=== PATIENT | female | born 1955 | race Caucasian/White ===

== ENCOUNTER → 2016-08-27 | Outpatient (CLI) | payer MEDICARE ==
--- NOTE | 2016-08-28 12:02 | MM ---
Reason for exam: screening (asymptomatic). Last mammogram was performed 1 year and 1 month ago. History: Patient is postmenopausal and has history of other cancer at age 57. Family history of breast cancer in paternal aunt. Benign cyst aspiration of the left breast, October 28, 2004. Benign ultrasound-guided core biopsy of the left breast, October 28, 2004. Took progesterone for 4 months beginning at age 50. Physical Findings: A clinical breast exam by your physician is recommended on an annual basis and results should be correlated with mammographic findings. MG 3D Screening Mammo W/Cad Bilateral CC and MLO view(s) were taken. Prior study comparison: July 20, 2015, bilateral MG screening mammo w CAD. December 30, 2013, bilateral MG diagnostic mammo w CAD FERNANDO. November 22, 2012, bilateral digital screening mammo w/CAD. There are scattered fibroglandular densities. Previous mammotome biopsy in the left breast. There is chronic nodularity in the left breast. ASSESSMENT: Benign, BI-RAD 2 RECOMMENDATION: Routine screening mammogram of both breasts in 1 year.
== END | disposition home or self-care (01) ==
LOC: RADMAMWWP 13:42
PROVIDERS: ATTEND Obstetrics & Gynecology
DX: Z12.31 Encounter for screening mammogram for malignant neoplasm of breast (principal)
CPT/HCPCS: 77063; G0202

== ENCOUNTER → 2017-01-07 | Outpatient (CLI) | payer MEDICARE ==
--- NOTE | 2017-01-07 15:55 | US ---
EXAMINATION TYPE: US thyroid st tissue head/neck DATE OF EXAM: 01/07/2017 COMPARISON: US . Thyroid biopsy dated 02/14/2013. CLINICAL HISTORY: E04.2 Nontoxic multinodular goiter. GLAND SIZE: Right Lobe: 3.1 x 2.0 x 1.7 cm Overall Parenchyma: heterogenous Left Lobe: 4.6 x 2.2 x 2.0 cm Overall Parenchyma: heterogeneous Isthmus Thickness: 0.4 cm NODULES RIGHT: # of nodules measured on right: 2 1. 1.0 X 0.8 x 0.9 cm hypoechoic cystic nodule at the upper pole with well-defined margins; . This nodule is wider than tall and shows no intranodular vascularity. Prior size: 0.6 x 0.4 x 0.5 cm 2. 0.9 X 0.5 x 0.7 cm hypoechoic cystic nodule at the mid pole with well-defined margins; interrupte d peripheral calcification. This nodule is wider than tall and shows no intranodular vascularity. Prior size: 0.6 x 0.4 x 0.4 cm LEFT: # of nodules measured on left: 1 1. 2.0 X 1.3 x 1.8 cm hypoechoic solid nodule at the lower pole with poorly defined margins; . Thi s nodule is wider than tall and shows intranodular vascularity. In comparison to the prior this appea rs to be previously biopsied. Prior size: 2.9 x 2.0 x 1.8 cm ISTHMUS: # of nodules measured in the isthmus: 0 Bilateral neck scanned, no evidence of lymphadenopathy. gland is diffusely heterogeneous and difficult to discern separate nodules, last exam in 2012 and gla nd looks different from prior. Patient had a biopsy a here and one done at [facility]. IMPRESSION: Multinodular thyroid goiter with minimal increase in size of cystic nodules on the right and stabilit y/decreased size of the solid nodule on the left with numerous subcentimeter nodules in a heterogenou s thyroid glandular echotexture.
== END | disposition home or self-care (01) ==
LOC: RADUSWWP 15:02
PROVIDERS: ATTEND Internal Medicine Endocrinology, Diabetes & Metabolism
DX: E04.2 Nontoxic multinodular goiter (principal)
CPT/HCPCS: 76536

== ENCOUNTER → 2017-11-30 | Outpatient (CLI) | payer MEDICARE ==
--- NOTE | 2017-12-02 10:54 | MM ---
Reason for exam: screening (asymptomatic). Last mammogram was performed 1 year and 3 months ago. History: Patient is postmenopausal and has history of other cancer at age 57. Family history of breast cancer in paternal aunt. Benign cyst aspiration of the left breast, October 28, 2004. Benign ultrasound-guided core biopsy of the left breast, October 28, 2004. Took progesterone for 4 months beginning at age 50. Physical Findings: A clinical breast exam by your physician is recommended on an annual basis and results should be correlated with mammographic findings. MG 3D Screening Mammo W/Cad Bilateral CC and MLO view(s) were taken. Prior study comparison: August 27, 2016, bilateral MG 3d screening mammo w/cad. July 20, 2015, bilateral MG screening mammo w CAD. There are scattered fibroglandular densities. No suspicious abnormality. Left biopsy marker noted. No significant changes when compared with prior studies. ASSESSMENT: Negative, BI-RAD 1 RECOMMENDATION: Routine screening mammogram of both breasts in 1 year.
== END | disposition home or self-care (01) ==
LOC: RADMAMWWP 11:06
PROVIDERS: ATTEND Internal Medicine
DX: Z12.31 Encounter for screening mammogram for malignant neoplasm of breast (principal)
CPT/HCPCS: 77063; 77067

== ENCOUNTER 2017-12-25 12:50 | Observation (INO) | payer MEDICARE ==
[2017-12-25] MEDS ORDERED: ASPIRIN 81 MG PO STA (13:17)
[2017-12-25] MEDS ORDERED: SODIUM CHLORIDE 0.9% 1,000 ML IV STA (13:17)
--- NOTE | 2017-12-25 13:19 | ED ---
General Adult HPI - General Chief complaint: Chest Pain Stated complaint: CHEST PAIN Time Seen by Provider: 12/25/17 13:12 Source: patient, RN notes reviewed Mode of arrival: wheelchair Limitations: no limitations - History of Present Illness Initial comments: Patient is a 62-year-old female significant past medical history for diabetes, hyperlipidemia, presented to the emergency room today with chief complaint of chest pain starting last night approximately 10:30 PM. Patient states that sharp type pain. States it is a constant tightness but sharpness comes and goes. States last night started when she was laying down for bed. She currently rates pain 8/10. Patient states she's not had anything similar in the past. Does admit to feeling nauseated at times. Denies any other complaints. Patient denies any recent fever, chills, shortness of breath, back pain, abdominal pain, vomiting, numbness or tingling, dysuria or hematuria, constipation or diarrhea, headaches or visual changes, or any other complaints. - Related Data Home Medications Medication Instructions Recorded Confirmed Latanoprost 1 drop BOTH EYES HS 08/23/15 12/25/17 Omeprazole [PriLOSEC] 40 mg PO DAILY 08/23/15 12/25/17 Ergocalciferol (Vitamin D2) 50,000 unit PO ZARCO 12/25/17 12/25/17 [Vitamin D2] Fenofibrate Nanocrystallized 145 mg PO DAILY 12/25/17 12/25/17 [Fenofibrate] Ferrous Sulfate [Feosol] 325 mg PO DAILY 12/25/17 12/25/17 Gabapentin 600 mg PO TID 12/25/17 12/25/17 [place]-3 Fatty Acids/Fish Oil [Fish 1 cap PO DAILY 12/25/17 12/25/17 Oil 1,000 mg Softgel] buPROPion HCL [Wellbutrin XL] 300 mg PO DAILY 12/25/17 12/25/17 metFORMIN HCL [Glucophage] 500 mg PO BID 12/25/17 12/25/17 Allergies Allergy/AdvReac Type Severity Reaction Status Date / Time No Known Allergies Allergy Verified 12/25/17 14:05 Review of Systems ROS Statement: Those systems with pertinent positive or pertinent negative responses have been documented in the HPI. ROS Other: All systems not noted in ROS Statement are negative. Past Medical History Past Medical History: Cancer, Eye Disorder, GERD/Reflux, Hyperlipidemia, Sleep Apnea/CPAP/BIPAP Additional Past Medical History / Comment(s): HX SKIN CA. GLAUCOMA FERNANDO, RETINA DETACHMENTS FERNANDO. USES CPAP. History of Any Multi-Drug Resistant Organisms: None Reported Past Surgical History: Ear Surgery, Orthopedic Surgery Additional Past Surgical History / Comment(s): EAR SURGERY - MUSCLES, ALSO RETINAS. RT WRIST DEQUAIRVANE'S SURG. RT FOOT PLANTAR FASCIITIS SURG. COLONOSCOPY, EGD. Past Anesthesia/Blood Transfusion Reactions: No Reported Reaction Past Psychological History: Depression Smoking Status: Former smoker Past Alcohol Use History: None Reported Past Drug Use History: None Reported - Past Family History Mother Family Medical History: Cancer General Exam - General Exam Comments Initial Comments: General: The patient is awake and alert, in no distress, and does not appear acutely ill. Eye: Pupils are equal, round and reactive to light, extra-ocular movements are intact. No nystagmus. There is normal conjunctiva bilaterally. No signs of icterus. Ears, nose, mouth and throat: There are moist mucous membranes and no oral lesions. Neck: The neck is supple, there is no tenderness or JVD. Cardiovascular: There is a regular rate and rhythm. No murmur, rub or gallop is appreciated. Respiratory: Lungs are clear to auscultation, respirations are non-labored, breath sounds are equal. No wheezes, stridor, rales, or rhonchi. Gastrointestinal: Soft, non-distended, non-tender abdomen without masses or organomegaly noted. There is no rebound or guarding present. No CVA tenderness. Musculoskeletal: Normal ROM, no tenderness. Strength 5/5. Sensation intact. Pulses equal bilaterally 2+. Neurological: A&O x 3. CN II-XII intact, There are no obvious motor or sensory deficits. Coordination appears grossly intact. Speech is normal. Skin: Skin is warm and dry and no rashes or lesions are noted. Psychiatric: Cooperative, appropriate mood & affect, normal judgment. Limitations: no limitations Course Vital Signs 12/25/17 12/25/17 12/25/17 13:05 13:40 14:06 Temperature 98.2 F Pulse Rate 76 84 79 Respiratory 18 18 18 Rate Blood Pressure 138/80 137/75 141/74 O2 Sat by Pulse 97 94 L 96 Oximetry EKG Findings - EKG Comments: EKG Findings:: EKG performed at 1302: Shows a normal sinus rhythm at 80 bpm. CO interval 132. QRS 84. QT/QTC 394/454. No acute ST changes. Medical Decision Making - Medical Decision Making 62-year-old female significant past medical history for diabetes, hyperlipidemia , sent to the emergency room for chest pain. Patient's EKG shows no acute change. Cardiac enzymes negative. Patient experiencing chest pressure and has had relief after nitro here the emergency room. Patient will be admitted for serial enzymes and consult from cardiology. - Lab Data Result diagrams: 12/25/17 13:40 12/25/17 13:40 Lab Results 12/25/17 12/25/17 12/25/17 Range/Units 13:40 13:40 13:40 WBC 6.2 (3.8-10.6) k/uL RBC 4.94 (3.80-5.40) m/uL Hgb 14.1 (11.4-16.0) gm/dL Hct 41.7 (34.0-46.0) % MCV 84.4 (80.0-100.0) fL MCH 28.5 (25.0-35.0) pg MCHC 33.8 (31.0-37.0) g/dL RDW 13.8 (11.5-15.5) % Plt Count 270 (150-450) k/uL Neutrophils % 70 % Lymphocytes % 22 % Monocytes % 5 % Eosinophils % 2 % Basophils % 0 % Neutrophils # 4.3 (1.3-7.7) k/uL Lymphocytes # 1.3 (1.0-4.8) k/uL Monocytes # 0.3 (0-1.0) k/uL Eosinophils # 0.1 (0-0.7) k/uL Basophils # 0.0 (0-0.2) k/uL PT (9.0-12.0) sec INR (<1.2) APTT (22.0-30.0) sec Sodium 137 (137-145) mmol/L Potassium 4.4 (3.5-5.1) mmol/L Chloride 106 (98-107) mmol/L Carbon Dioxide 21 L (22-30) mmol/L Anion Gap 10 mmol/L BUN 16 (7-17) mg/dL Creatinine 0.73 (0.52-1.04) mg/dL Est GFR (CKD-EPI)AfAm >90 (>60 ml/min/1.73 sqM) Est GFR (CKD-EPI)NonAf 88 (>60 ml/min/1.73 sqM) Glucose 93 (74-99) mg/dL Calcium 9.4 (8.4-10.2) mg/dL Magnesium 1.8 (1.6-2.3) mg/dL Total Bilirubin 0.4 (0.2-1.3) mg/dL AST 31 (14-36) U/L ALT 45 (9-52) U/L Alkaline Phosphatase 57 (38-126) U/L Total Creatine Kinase 160 H (30-135) U/L CK-MB (CK-2) 2.1 (0.0-2.4) ng/mL CK-MB (CK-2) Rel Index 1.3 Troponin I <0.012 (0.000-0.034) ng/mL Total Protein 7.0 (6.3-8.2) g/dL Albumin 4.2 (3.5-5.0) g/dL // Range/Units 13:40 WBC (3.8-10.6) k/uL RBC (3.80-5.40) m/uL Hgb (11.4-16.0) gm/dL Hct (34.0-46.0) % MCV (80.0-100.0) fL MCH (25.0-35.0) pg MCHC (31.0-37.0) g/dL RDW (11.5-15.5) % Plt Count (150-450) k/uL Neutrophils % % Lymphocytes % % Monocytes % % Eosinophils % % Basophils % % Neutrophils # (1.3-7.7) k/uL Lymphocytes # (1.0-4.8) k/uL Monocytes # (0-1.0) k/uL Eosinophils # (0-0.7) k/uL Basophils # (0-0.2) k/uL PT 10.0 (9.0-12.0) sec INR 1.0 (<1.2) APTT 23.0 (22.0-30.0) sec Sodium (137-145) mmol/L Potassium (3.5-5.1) mmol/L Chloride (98-107) mmol/L Carbon Dioxide (22-30) mmol/L Anion Gap mmol/L BUN (7-17) mg/dL Creatinine (0.52-1.04) mg/dL Est GFR (CKD-EPI)AfAm (>60 ml/min/1.73 sqM) Est GFR (CKD-EPI)NonAf (>60 ml/min/1.73 sqM) Glucose (74-99) mg/dL Calcium (8.4-10.2) mg/dL Magnesium (1.6-2.3) mg/dL Total Bilirubin (0.2-1.3) mg/dL AST (14-36) U/L ALT (9-52) U/L Alkaline Phosphatase (38-126) U/L Total Creatine Kinase (30-135) U/L CK-MB (CK-2) (0.0-2.4) ng/mL CK-MB (CK-2) Rel Index Troponin I (0.000-0.034) ng/mL Total Protein (6.3-8.2) g/dL Albumin (3.5-5.0) g/dL Disposition Clinical Impression: Chest pain Disposition: ADMITTED IP TO THIS HOSP Condition: Good Is patient prescribed a controlled substance at d/c from ED?: No Referrals: Daryn Real MD [Primary Care Provider] - 1-2 days Time of Disposition: 15:02
[2017-12-25] MEDS: NITROGLYCERIN SL TABS 0.4 MG TAB SUBLINGUAL STA ×2 (13:34→14:05)
[2017-12-25 13:49] LABS: Basophils % (A) 0 %; Eosinophils # (A) 0.1 k/uL (0-0.7); Eosinophils % (A) 2 %; HCT 41.7 % (34.0-46.0); HGB 14.1 gm/dL (11.4-16.0); Lymphocytes # (A) 1.3 k/uL (1.0-4.8); Lymphocytes % (A) 22 %; MCH 28.5 pg (25.0-35.0); MCHC 33.8 g/dL (31.0-37.0); MCV 84.4 fL (80.0-100.0); Mean Platelet Volume 6.7; Monocytes # (A) 0.3 k/uL (0-1.0); Monocytes % (A) 5 %; Neutrophils # (A) 4.3 k/uL (1.3-7.7); Neutrophils % (A) 70 %; Platelet Count 270 k/uL (150-450); RBC 4.94 m/uL (3.80-5.40); RDW 13.8 % (11.5-15.5); WBC 6.2 k/uL (3.8-10.6)
--- NOTE | 2017-12-25 14:02 | XR ---
EXAMINATION TYPE: XR chest 2V DATE OF EXAM: 12/25/2017 COMPARISON: 01/16/2016 HISTORY: Chest pain TECHNIQUE: Frontal and lateral views of the chest are obtained. FINDINGS: There is no focal air space opacity, pleural effusion, or pneumothorax seen. Low lung volu mes accentuate the pulmonary vasculature and cardiomediastinal silhouette. Overall the cardiac silhou ette size is within normal limits. The osseous structures are intact. There is redemonstration of a large hiatal hernia is seen on the prior. IMPRESSION: No acute cardiopulmonary process. Redemonstration of a large hiatal hernia.
[2017-12-25 14:06] LABS: Creatine Kinase 160 U/L (30-135)
[2017-12-25 14:08] LABS: ALT 45 U/L (9-52); AST 31 U/L (14-36); Albumin 4.2 g/dL (3.5-5.0); Alkaline Phosphatase 57 U/L (38-126); Anion Gap 10 mmol/L; Blood Urea Nitrogen 16 mg/dL (7-17); Calcium 9.4 mg/dL (8.4-10.2); Carbon Dioxide 21 mmol/L (22-30); Chloride 106 mmol/L (98-107); Glucose 93 mg/dL (74-99); Magnesium 1.8 mg/dL (1.6-2.3); Potassium 4.4 mmol/L (3.5-5.1); Sodium 137 mmol/L (137-145); Total Bilirubin 0.4 mg/dL (0.2-1.3)
[2017-12-25 14:20] LABS: Creatine Kinase MB 2.1 ng/mL (0.0-2.4); Troponin I <0.012 ng/mL (0.000-0.034)
[2017-12-25] MEDS ORDERED: NITROGLYCERIN SL TABS 0.4 MG TAB SUBLINGUAL PRN (15:36)
[2017-12-25] MEDS ORDERED: SODIUM CHLORIDE 0.9% 1,000 ML IV ONE (15:36)
[2017-12-25] MEDS ORDERED: HEPARIN SODIUM,PORCINE 5,000 UNIT/ML 1 ML VIAL IV ONE (15:36)
[2017-12-25] MEDS ORDERED: HEPARIN SOD,PORK IN 0.45% NACL 25,000 UNIT in 0.45% NACL 1 500ML.BAG IV SCH (15:45)
--- NOTE | 2017-12-25 17:04 | P.HPIM ---
History of Present Illness H&P Date: 12/25/17 Chief Complaint: Chest pain and angina, diabetes, hypertension, hyperlipidemia, neuropathy 62-year-old female obese one of Dr. Corcoran patient with past medical history of diabetes hypertension, hyperlipidemia, obstructive sleep apnea, chronic back pain and chronic neuropathy who had retinal detachment 2 in the past post treatment. Patient developed to have chest pain from last night lasted all the way till today was initially persistent midsternal radiating toward her jaw and the back associated with mild shortness of breath mild nausea with mild palpitation. Symptoms become slightly red worse and then he become intermittent on and off worsening with exertion. Patient ended up coming to the emergency department at [facility] where was seen and evaluated her CK was mildly elevated with negative troponin EKG did not show any major abnormality. Patient was heparinize will be admitted to the hospital for serial enzyme to see cardiology and possible need to go for stress test unless her CK with troponin comes back abnormal she might need a heart cath. Review of Systems CONSTITUTIONAL: Overweight in no acute respiratory distress. EYES: No icterus sclerae, no conjunctivitis. EARS, NOSE, MOUTH, THROAT, and FACE: No sore throat, lymphadenopathy, carotid bruits or deformity. RESPIRATORY: No SOB cough or wheezes. CARDIOVASCULAR: No CP, Palpitation, PND, Orthopnea, or angina. GASTROINTESTINAL: No Abd pain, Nausea or vomiting, no Diarrhea or constipation, No GI Bleed, no distention or masses. GENITOURINARY: Negative for Hematuria or UTI, no kidney stones. INTEGUMENT/BREAST: Positive back pain and neuropathy with weakness and numbness of both lower extremities. HEMATOLOGIC/LYMPHATIC: Negative for bleed or purpura. MUSCULOSKELTAL: Negative for Myalgia or arthralgia. NEURLOGICAL: No LOC, Sz or syncope, blurred vision dizziness or abnormality.. BEHAVIORAL/PSYCH: Negative. ENDOCRINE: Negative. Past Medical History Past Medical History: Cancer, Eye Disorder, GERD/Reflux, Hyperlipidemia, Sleep Apnea/CPAP/BIPAP Additional Past Medical History / Comment(s): HX SKIN CA. GLAUCOMA FERNANDO, RETINA DETACHMENTS FERNANDO. USES CPAP. History of Any Multi-Drug Resistant Organisms: None Reported Past Surgical History: Ear Surgery, Orthopedic Surgery Additional Past Surgical History / Comment(s): EAR SURGERY - MUSCLES, ALSO RETINAS. RT WRIST DEQUAIRVANE'S SURG. RT FOOT PLANTAR FASCIITIS SURG. COLONOSCOPY, EGD. Past Anesthesia/Blood Transfusion Reactions: No Reported Reaction Past Psychological History: Depression Smoking Status: Former smoker Past Alcohol Use History: None Reported Past Drug Use History: None Reported - Past Family History Mother Family Medical History: Cancer Medications and Allergies Home Medications Medication Instructions Recorded Confirmed Type Latanoprost 1 drop BOTH EYES HS 08/23/15 12/25/17 History Omeprazole [PriLOSEC] 40 mg PO DAILY 08/23/15 12/25/17 History Ergocalciferol (Vitamin D2) 50,000 unit PO ZARCO 12/25/17 12/25/17 History [Vitamin D2] Fenofibrate Nanocrystallized 145 mg PO DAILY 12/25/17 12/25/17 History [Fenofibrate] Ferrous Sulfate [Feosol] 325 mg PO DAILY 12/25/17 12/25/17 History Gabapentin 600 mg PO TID 12/25/17 12/25/17 History [place]-3 Fatty Acids/Fish Oil [Fish 1 cap PO DAILY 12/25/17 12/25/17 History Oil 1,000 mg Softgel] buPROPion HCL [Wellbutrin XL] 300 mg PO DAILY 12/25/17 12/25/17 History metFORMIN HCL [Glucophage] 500 mg PO BID 12/25/17 12/25/17 History Allergies Allergy/AdvReac Type Severity Reaction Status Date / Time No Known Allergies Allergy Verified 12/25/17 14:05 Physical Exam Vitals: Vital Signs Temp Pulse Resp BP Pulse Ox 12/25/17 16:26 83 18 150/74 96 12/25/17 14:06 79 18 141/74 96 12/25/17 13:40 84 18 137/75 94 L 12/25/17 13:05 98.2 F 76 18 138/80 97 Intake and Output 12/25/17 12/25/17 12/25/17 06:59 14:59 22:59 Other: Weight 98.883 kg General Appearance: Alert, cooperative, no distress, obese but looks very comfortable. Neck HEENT: Supple, no lymphadenopathy, no thyroid enlargement, no carotid bruits. Lungs: Clear to auscultation without crackles or wheezes no rhonchi, no deformity. Chest Wall: No chest wall deformity, no tenderness, no costochondritis, no skin rash on the surface part of the skin, there is no sign of radiculopathy in the thoracic area as well. Heart: Regular rate and rhythm, S1, S2 normal, no murmur, rub or gallop. Back: Symmetric, no curvature, ROM normal, no CVA tenderness. Abdomen: Soft, non-tender, bowel sounds active all four quadrants, no masses, no organomegaly. Extremities: Extremities normal, atraumatic, no cyanosis or edema. Pulses: 2+ and symmetric. Skin: Skin color, texture, tugor normal, no rashes or lesions. Neurologic: Alert oriented x3 cranial nerves II through XII intact, no motor deficit, no abnormal balance or gait. Results CBC & Chem 7: 12/25/17 13:40 12/25/17 13:40 Labs: Abnormal Lab Results - Last 24 Hours (Table) 12/25/17 12/25/17 Range/Units 13:40 13:40 Carbon Dioxide 21 L (22-30) mmol/L Total Creatine Kinase 160 H (30-135) U/L Thrombosis Risk Factor Assmnt - DVT/VTE Prophylaxis DVT/VTE Prophylaxis: Pharmacologic Prophylaxis ordered, Mechanical Prophylaxis ordered Assessment and Plan Plan: 1 chest pain: Atypical, patient had multiple risk factor from her diabetes, age , family history, hypertension and hyperlipidemia her first CK was 160 with normal troponin, will keep patient in the hospital at least for the next 24 hours serial CK with done order an echocardiogram and patient be seen cardiology. Patient can benefit from some sort of stress test either nuclear stress test or echo stress test and can be arranged as an outpatient if her cardiac enzyme are negative. Cardiac enzymes were positive patient might be going for heart cath by tomorrow. 2 type 2 diabetes: Weight control on oral agent continue metformin, Accu-Chek with sliding scale will be done continue diet control as well. 3 elevated blood pressure: Was start patient on small dose of beta mariann like metoprolol 25 mg half tablet twice a day for now try to keep her systolic below 130. 4 hyperlipidemia: Still on fenofibrate, lipid panel be done tomorrow morning if she had an elevated LDL might benefit from being on statin as well. 5 severe GERD/GI prophylaxis: Patient is on omeprazole 40 mg daily resume medication. 6 chronic depression: Has been on Wellbutrin XL 300 mg daily. 7 chronic back pain and chronic lower extremity neuropathy has been on gabapentin 600 mg 3 times a day which will be resumed for now. 8 DVT prophylaxis: Patient will be on heparin subcutaneous. CODE STATUS: Full code. Admit patient to observation status unless CK with troponin are elevated patient will be on full admit.
[2017-12-25] MEDS: metFORMIN 500 MG TAB PO SCH (18:43)
[2017-12-25] MEDS: INSULIN ASPART 100 UNIT/ML 1 ML 10 ML VIAL SQ SCH ×2 (18:43→21:26)
[2017-12-25 19:56] LABS: Creatine Kinase 119 U/L (30-135)
[2017-12-25 20:10] LABS: Creatine Kinase MB 1.8 ng/mL (0.0-2.4); Troponin I <0.012 ng/mL (0.000-0.034)
[2017-12-25 20:30] VITALS: RESP 18
[2017-12-25 20:36] LABS: Glucose,Whole Blood 142 mg/dL (75-99)
[2017-12-25] MEDS ORDERED: LATANOPROST 0.005% OPHTH DROPS 2.5 ML BTL BOTH EYES SCH (21:00)
[2017-12-25] MEDS ORDERED: ACETAMINOPHEN TAB 325 MG TAB PO PRN (21:14)
[2017-12-25] MEDS: GABAPENTIN 300 MG CAP PO SCH (21:36)
[2017-12-25] MEDS: METOPROLOL TARTRATE 12.5 MG TAB PO SCH (21:36)
[2017-12-26 01:50] LABS: Cholesterol 215 mg/dL (<200); HDL Cholesterol 43 mg/dL (40-60); LDL Cholesterol,Calculated 114 mg/dL (0-99); Triglycerides 292 mg/dL (<150)
[2017-12-26 02:07] LABS: Creatine Kinase 101 U/L (30-135)
[2017-12-26 02:21] LABS: Creatine Kinase MB 1.3 ng/mL (0.0-2.4); Troponin I <0.012 ng/mL (0.000-0.034)
[2017-12-26] MEDS: INSULIN ASPART 100 UNIT/ML 1 ML 10 ML VIAL SQ SCH ×3 (03:19→12:43)
[2017-12-26] MEDS ORDERED: PANTOPRAZOLE 40 MG TABLET PO SCH (07:30)
[2017-12-26 07:47] LABS: Glucose,Whole Blood 107 mg/dL (75-99)
[2017-12-26] MEDS ORDERED: FERROUS SULFATE 325 MG TAB PO SCH (09:00)
[2017-12-26] MEDS ORDERED: buPROPion XL 300 MG TAB.ER.24H PO SCH (09:00)
[2017-12-26] MEDS ORDERED: FENOFIBRATE 160 MG TAB PO SCH (09:00)
[2017-12-26] MEDS ORDERED: NON-FORMULARY DRUG (Omega-3 Fatty Acids/Fish Oil [Fish Oil 1,000 Mg Softgel] 1 CAP) PO SCH (09:00)
--- NOTE | 2017-12-26 09:37 | P.CRDCN ---
History of Present Illness Consult date: 12/26/17 History of present illness: This is a 61-year-old female with history of hypertension, hyperlipidemia and sleep apnea who was admitted to the hospital with the complaints of chest tightness which is midsternal in nature. It started yesterday and the night before. The pain was constant in nature. There was some radiation to the jaw. This she was given sublingual nitroglycerin with some partial relief. Her cardiac enzymes have been negative. EKG did not reveal any acute changes. She is feeling much better today. She is a nonsmoker. No evidence of any family history of ischemic heart disease. We discussed the option of stress test versus cardiac catheterization for further evaluation. I explained the risks and benefits of the procedure. She preferred to have a stress test. We'll going to increase her activity and it is stable, patient could be discharged home. Outpatient stress test to be arranged. Follow-up after the stress test. Review of Systems As per the chart Past Medical History Past Medical History: Cancer, Eye Disorder, GERD/Reflux, Hyperlipidemia, Sleep Apnea/CPAP/BIPAP Additional Past Medical History / Comment(s): HX SKIN CA. GLAUCOMA FERNANDO, RETINA DETACHMENTS FERNANDO. USES CPAP. History of Any Multi-Drug Resistant Organisms: None Reported Past Surgical History: Orthopedic Surgery Additional Past Surgical History / Comment(s): vestibular testing x2, ALSO RETINAS. RT WRIST DEQUAIRVANE'S SURG. RT FOOT PLANTAR FASCIITIS SURG. COLONOSCOPY, EGD.rt foot bunionectomy Past Anesthesia/Blood Transfusion Reactions: No Reported Reaction Smoking Status: Former smoker - Past Family History Mother Family Medical History: Cancer Father History Unknown: Yes Medications and Allergies Home Medications Medication Instructions Recorded Confirmed Type Latanoprost 1 drop BOTH EYES HS 08/23/15 12/25/17 History Omeprazole [PriLOSEC] 40 mg PO DAILY 08/23/15 12/25/17 History Ergocalciferol (Vitamin D2) 50,000 unit PO ZARCO 12/25/17 12/25/17 History [Vitamin D2] Fenofibrate Nanocrystallized 145 mg PO DAILY 12/25/17 12/25/17 History [Fenofibrate] Ferrous Sulfate [Feosol] 325 mg PO DAILY 12/25/17 12/25/17 History Gabapentin 600 mg PO TID 12/25/17 12/25/17 History Tolley-3 Fatty Acids/Fish Oil [Fish 1 cap PO DAILY 12/25/17 12/25/17 History Oil 1,000 mg Softgel] buPROPion HCL [Wellbutrin XL] 300 mg PO DAILY 12/25/17 12/25/17 History metFORMIN HCL [Glucophage] 500 mg PO BID 12/25/17 12/25/17 History Allergies Allergy/AdvReac Type Severity Reaction Status Date / Time No Known Allergies Allergy Verified 12/25/17 21:02 Physical Exam Vitals: Vital Signs Temp Pulse Pulse Resp BP BP Pulse Ox 12/26/17 07:20 98.5 F 75 18 124/68 98 12/26/17 03:20 99.0 F 74 18 135/87 98 12/26/17 00:00 98.8 F 79 18 120/76 98 12/25/17 20:28 100.3 F H 102 H 18 136/84 94 L 12/25/17 20:05 100.1 F H 12/25/17 20:00 18 12/25/17 19:51 101 H 16 157/87 95 12/25/17 16:26 83 18 150/74 96 12/25/17 14:06 79 18 141/74 96 12/25/17 13:40 84 18 137/75 94 L 12/25/17 13:05 98.2 F 76 18 138/80 97 Intake and Output 12/25/17 12/26/17 12/26/17 22:59 06:59 14:59 Intake Total 174 Balance 174 Intake: Intake, IV Titration 174 Amount Heparin Sod,Pork in 0.45% 174 NaCl 25,000 unit In 0.45 % NaCl 1 500ml.bag @ 10. 113 UNITS/KG/HR 20 mls/hr IV .Q24H [facility] Rx#: [id number] Other: # Voids 1 1 Weight 98.43 kg GENERAL EXAM: Patient is alert and oriented and doesn't appear to be in any acute distress HEENT: Normocephalic. Normal reaction of pupils, equal size, normal range of extraocular motion. No erythema or exudates in the throat. NECK: No masses, no nuchal rigidity. CHEST: No chest wall deformity. LUNGS: Equal air entry with no crackles or wheeze. HEART: S1 and S2 normal with no audible mumurs or gallops. Regular rhythm, femorals equal on both sides.. ABDOMEN: No hepatosplenomegaly, normal bowel sounds, no guarding or rigidity. SKIN: No rashes CENTRAL NERVOUS SYSTEM: No focal deficits. EXTREMITIES: No cyanosis, clubbing or edema. Results 12/25/17 13:40 12/25/17 13:40 Cardiac Enzymes 12/25/17 12/25/17 12/25/17 Range/Units 13:40 13:40 19:16 AST 31 (14-36) U/L CK-MB (CK-2) 2.1 1.8 (0.0-2.4) ng/mL Troponin I <0.012 <0.012 (0.000-0.034) ng/mL 12/26/17 Range/Units 01:20 AST (14-36) U/L CK-MB (CK-2) 1.3 (0.0-2.4) ng/mL Troponin I <0.012 (0.000-0.034) ng/mL Coagulation 12/25/17 12/25/17 12/26/17 Range/Units 13:40 23:24 07:02 PT 10.0 (9.0-12.0) sec APTT 23.0 24.2 27.4 (22.0-30.0) sec Lipids 12/26/17 Range/Units 01:20 Triglycerides 292 H (<150) mg/dL Cholesterol 215 H (<200) mg/dL HDL Cholesterol 43 (40-60) mg/dL CBC 12/25/17 Range/Units 13:40 WBC 6.2 (3.8-10.6) k/uL RBC 4.94 (3.80-5.40) m/uL Hgb 14.1 (11.4-16.0) gm/dL Hct 41.7 (34.0-46.0) % Plt Count 270 (150-450) k/uL Comprehensive Metabolic Panel 12/25/17 Range/Units 13:40 Sodium 137 (137-145) mmol/L Potassium 4.4 (3.5-5.1) mmol/L Chloride 106 (98-107) mmol/L Carbon Dioxide 21 L (22-30) mmol/L BUN 16 (7-17) mg/dL Creatinine 0.73 (0.52-1.04) mg/dL Glucose 93 (74-99) mg/dL Calcium 9.4 (8.4-10.2) mg/dL AST 31 (14-36) U/L ALT 45 (9-52) U/L Alkaline Phosphatase 57 (38-126) U/L Total Protein 7.0 (6.3-8.2) g/dL Albumin 4.2 (3.5-5.0) g/dL Current Medications Generic Name Dose Route Start Last Admin Trade Name Freq PRN Reason Stop Dose Admin Acetaminophen 650 mg 12/25/17 21:14 12/25/17 21:37 Tylenol Tab PO 650 mg Q4HR PRN Administration Fever and/ or Pain Aspirin 325 mg 12/26/17 09:00 Aspirin PO DAILY [facility] Bupropion HCl 300 mg 12/26/17 09:00 Wellbutrin Xl PO DAILY [facility] Ergocalciferol 50,000 unit 12/27/17 09:00 Vitamin D2 PO ZARCO [facility] Fenofibrate 160 mg 12/26/17 09:00 Lofibra PO DAILY [facility] Ferrous Sulfate 325 mg 12/26/17 09:00 Feosol PO DAILY [facility] Gabapentin 600 mg 12/25/17 22:00 12/25/17 21:36 Neurontin PO 600 mg TID [facility] Administration Sodium Chloride 1,000 mls @ 20 mls/hr 12/25/17 13:17 12/25/17 13:31 Saline 0.9% IV 12/26/17 13:16 20 mls/hr .Q24H [facility] Administration Heparin Sodium/Sodium Chloride 500 mls @ 20 mls/hr 12/25/17 15:45 12/26/17 01 :04 25,000 unit/ Sodium Chloride IV 13.113 units/kg/hr .Q24H [facility] 25.93 mls/hr Titration Protocol 10.113 UNITS/KG/HR Insulin Aspart 0 unit 12/25/17 17:30 12/26/17 08:16 Novolog SQ Not Given [id number] [facility] Protocol Latanoprost 1 drops 12/25/17 21:00 12/25/17 21:36 Xalatan 0.005% BOTH EYES 1 drops HS NATALIE Administration Metformin HCl 500 mg 12/25/17 17:30 12/25/17 18:43 Glucophage PO Not Given BID-W/MEALS [facility] Metoprolol Tartrate 12.5 mg 12/25/17 21:00 12/25/17 21:36 Lopressor PO 12.5 mg BID NATALIE Administration Nitroglycerin 0.4 mg 12/25/17 15:36 Nitrostat SUBLINGUAL Q5M PRN Chest Pain Pantoprazole Sodium 40 mg 12/26/17 07:30 Protonix PO AC-BRKFST [facility] Intake and Output 12/25/17 12/26/17 12/26/17 22:59 06:59 14:59 Intake Total 174 Balance 174 Intake: Intake, IV Titration 174 Amount Heparin Sod,Pork in 0.45% 174 NaCl 25,000 unit In 0.45 % NaCl 1 500ml.bag @ 10. 113 UNITS/KG/HR 20 mls/hr IV .Q24H [facility] Rx#: [id number] Other: # Voids 1 1 Weight 98.43 kg 12/25/17 13:40 12/25/17 13:40 EKG Interpretations (text) Sinus rhythm without acute changes Assessment and Plan (1) Diabetes mellitus Current Visit: Yes Status: Acute Code(s): E11.9 - TYPE 2 DIABETES MELLITUS WITHOUT COMPLICATIONS SNOMED Code(s): 08746710 (2) Chest pain Current Visit: Yes Status: Acute Code(s): R07.9 - CHEST PAIN, UNSPECIFIED SNOMED Code(s): 34944911 (3) Hypertension Current Visit: Yes Status: Acute Code(s): I10 - ESSENTIAL (PRIMARY) HYPERTENSION SNOMED Code(s): 08272690 Plan: Patient chest pains resolved. Clinically, these are equivocal chest pains. Given her risk factor profile underlying ischemic heart disease needs to be ruled out. Patient is given the option of stress test versus cardiac catheterization. Patient preferred to have a stress test which can be arranged as an outpatient. Patient will have an echocardiogram today.
[2017-12-26] MEDS: ASPIRIN 325 MG TAB PO SCH ×2 (09:42→09:54)
[2017-12-26] MEDS: GABAPENTIN 300 MG CAP PO SCH (09:47)
[2017-12-26] MEDS: metFORMIN 500 MG TAB PO SCH (09:47)
[2017-12-26] MEDS: METOPROLOL TARTRATE 12.5 MG TAB PO SCH (09:47)
[2017-12-26 11:41] VITALS: BP 148/75; PULSE 71; TEMP 97.6
[2017-12-26 11:53] LABS: Glucose,Whole Blood 101 mg/dL (75-99)
[2017-12-26 13:59] LABS: Glucose,Whole Blood 100 mg/dL (75-99)
--- NOTE | 2017-12-26 16:37 | P.PN ---
Subjective Progress Note Date: 12/26/17 62-year-old female obese one of Dr. Corcoran patient with past medical history of diabetes hypertension, hyperlipidemia, obstructive sleep apnea, chronic back pain and chronic neuropathy who had retinal detachment 2 in the past post treatment. Patient developed to have chest pain from last night lasted all the way till today was initially persistent midsternal radiating toward her jaw and the back associated with mild shortness of breath mild nausea with mild palpitation. Symptoms become slightly red worse and then he become intermittent on and off worsening with exertion. Patient ended up coming to the emergency department at [facility] where was seen and evaluated her CK was mildly elevated with negative troponin EKG did not show any major abnormality. Patient was heparinize will be admitted to the hospital for serial enzyme to see cardiology and possible need to go for stress test unless her CK with troponin comes back abnormal she might need a heart cath. 12/26: Patient is feeling better today she denies any chest pain or any shortness of breath, she denies any abdominal pain, she was seen earlier by cardiology, patient was given the option of heart catheterization versus stress test she wanted to go for a stress test this will be done as an outpatient, patient had an echocardiogram done however the results still pending patient would want to go home and follow-up as an outpatient. Objective - Vital Signs Vital signs: Vital Signs Temp 98.5 F 12/26/17 07:20 Pulse 75 12/26/17 07:20 Resp 18 12/26/17 07:20 BP 124/68 12/26/17 07:20 Pulse Ox 98 12/26/17 07:20 Intake & Output 12/25/17 12/26/17 12/26/17 18:59 06:59 18:59 Intake Total 174 Balance 174 Weight 98.883 kg 98.43 kg Intake: Intake, IV Titration 174 Amount Heparin Sod,Pork in 0.45% 174 NaCl 25,000 unit In 0.45 % NaCl 1 500ml.bag @ 10. 113 UNITS/KG/HR 20 mls/hr IV .Q24H [facility] Rx#: [id number] Other: # Voids 1 - Exam General Appearance: Alert, cooperative, no distress, obese but looks very comfortable. Neck HEENT: Supple, no lymphadenopathy, no thyroid enlargement, no carotid bruits. Lungs: Clear to auscultation without crackles or wheezes no rhonchi, no deformity. Chest Wall: No chest wall deformity, no tenderness, no costochondritis, no skin rash on the surface part of the skin, there is no sign of radiculopathy in the thoracic area as well. Heart: Regular rate and rhythm, S1, S2 normal, no murmur, rub or gallop. Back: Symmetric, no curvature, ROM normal, no CVA tenderness. Abdomen: Soft, non-tender, bowel sounds active all four quadrants, no masses, no organomegaly. Extremities: Extremities normal, atraumatic, no cyanosis or edema. Pulses: 2+ and symmetric. Skin: Skin color, texture, tugor normal, no rashes or lesions. Neurologic: Alert oriented x3 cranial nerves II through XII intact, no motor deficit, no abnormal balance or gait. - Labs CBC & Chem 7: 12/25/17 13:40 12/25/17 13:40 Labs: Abnormal Lab Results - Last 24 Hours (Table) 12/25/17 12/25/17 12/25/17 Range/Units 13:40 13:40 20:18 Carbon Dioxide 21 L (22-30) mmol/L POC Glucose (mg/dL) 142 H (75-99) mg/dL Total Creatine Kinase 160 H (30-135) U/L Triglycerides (<150) mg/dL Cholesterol (<200) mg/dL LDL Cholesterol, Calc (0-99) mg/dL 12/26/17 12/26/17 Range/Units 01:20 07:17 Carbon Dioxide (22-30) mmol/L POC Glucose (mg/dL) 107 H (75-99) mg/dL Total Creatine Kinase (30-135) U/L Triglycerides 292 H (<150) mg/dL Cholesterol 215 H (<200) mg/dL LDL Cholesterol, Calc 114 H (0-99) mg/dL Assessment and Plan Assessment: Assessment and Plan Plan: 1 chest pain: Atypical, patient had multiple risk factor from her diabetes, age , family history, hypertension and hyperlipidemia her first CK was 160 with normal troponin, will keep patient in the hospital at least for the next 24 hours serial CK with done order an echocardiogram and patient be seen cardiology. Patient can benefit from some sort of stress test either nuclear stress test or echo stress test and can be arranged as an outpatient if her cardiac enzyme are negative. Cardiac enzymes were positive patient might be going for heart cath by tomorrow. 2 type 2 diabetes: Weight control on oral agent continue metformin, Accu-Chek with sliding scale will be done continue diet control as well. 3 elevated blood pressure: Was start patient on small dose of beta mariann like metoprolol 25 mg half tablet twice a day for now try to keep her systolic below 130. 4 hyperlipidemia: Still on fenofibrate, lipid panel be done tomorrow morning if she had an elevated LDL might benefit from being on statin as well. 5 severe GERD/GI prophylaxis: Patient is on omeprazole 40 mg daily resume medication. 6 chronic depression: Has been on Wellbutrin XL 300 mg daily. 7 chronic back pain and chronic lower extremity neuropathy has been on gabapentin 600 mg 3 times a day which will be resumed for now. 8 DVT prophylaxis: Patient will be on heparin subcutaneous. 9. Patient can be discharged home with follow-up as an outpatient.
--- NOTE | 2017-12-26 16:40 | P.DS ---
Providers Date of admission: 12/25/17 15:55 Attending physician: Sridhar Turner Consults: 12/25/17 15:36 Consult Physician Stat Consulting Provider: [facility] Consult Reason/Comments: chest pain Do you want consulting provider notified?: Yes Primary care physician: [facility] Course: 62-year-old female obese one of Dr. Corcoran patient with past medical history of diabetes hypertension, hyperlipidemia, obstructive sleep apnea, chronic back pain and chronic neuropathy who had retinal detachment 2 in the past post treatment. Patient developed to have chest pain from last night lasted all the way till today was initially persistent midsternal radiating toward her jaw and the back associated with mild shortness of breath mild nausea with mild palpitation. Symptoms become slightly red worse and then he become intermittent on and off worsening with exertion. Patient ended up coming to the emergency department at [facility] where was seen and evaluated her CK was mildly elevated with negative troponin EKG did not show any major abnormality. Patient was heparinize will be admitted to the hospital for serial enzyme to see cardiology and possible need to go for stress test unless her CK with troponin comes back abnormal she might need a heart cath. 12/26: Patient is feeling better today she denies any chest pain or any shortness of breath, she denies any abdominal pain, she was seen earlier by cardiology, patient was given the option of heart catheterization versus stress test she wanted to go for a stress test this will be done as an outpatient, patient had an echocardiogram done however the results still pending patient would want to go home and follow-up as an outpatient. Discharge diagnoses: 1. Chest pain with few risk factors for CAD. Patient need to have a stress test as an outpatient as she declined left heart catheterization 2. type 2 diabetes. 3 .HTN 4 hyperlipidemia. 5 severe GERD. 6 chronic depression. 7 chronic back pain and chronic lower extremity neuropathy . Patient Condition at Discharge: Good Plan - Discharge Summary Discharge Rx Participant: Yes New Discharge Prescriptions: No Action Latanoprost 1 drop BOTH EYES HS Omeprazole [PriLOSEC] 40 mg PO DAILY buPROPion HCL [Wellbutrin XL] 300 mg PO DAILY Fenofibrate Nanocrystallized [Fenofibrate] 145 mg PO DAILY Ergocalciferol (Vitamin D2) [Vitamin D2] 50,000 unit PO ZARCO metFORMIN HCL [Glucophage] 500 mg PO BID Gabapentin 600 mg PO TID Ferrous Sulfate [Feosol] 325 mg PO DAILY Datil-3 Fatty Acids/Fish Oil [Fish Oil 1,000 mg Softgel] 1 cap PO DAILY Discharge Medication List Latanoprost 1 drop BOTH EYES HS 08/23/15 [History] Omeprazole [PriLOSEC] 40 mg PO DAILY 08/23/15 [History] Ergocalciferol (Vitamin D2) [Vitamin D2] 50,000 unit PO ZARCO 12/25/17 [History] Fenofibrate Nanocrystallized [Fenofibrate] 145 mg PO DAILY 12/25/17 [History] Ferrous Sulfate [Feosol] 325 mg PO DAILY 12/25/17 [History] Gabapentin 600 mg PO TID 12/25/17 [History] Datil-3 Fatty Acids/Fish Oil [Fish Oil 1,000 mg Softgel] 1 cap PO DAILY [History] buPROPion HCL [Wellbutrin XL] 300 mg PO DAILY 12/25/17 [History] metFORMIN HCL [Glucophage] 500 mg PO BID 12/25/17 [History] Follow up Appointment(s)/Referral(s): Daryn Real MD [Primary Care Provider] - 1-2 days Marshall Dotson MD [STAFF PHYSICIAN] - 1 Week (Office to call with appointment. Dr Dotson's office will schedule an outpatient stress test for the patient. Questioning of Lopressor 12.5mg) Patient Instructions/Handouts: Chest Pain (DC) Discharge Disposition: HOME SELF-CARE
--- NOTE | 2017-12-27 08:52 | ECHOF ---
Referral Reason:Chest pain and cardiomyopathy MEASUREMENTS -------- HEIGHT: 162.6 cm WEIGHT: 98.4 kg BP: 124/68 IVSd: 1.2 cm (0.6 - 1.1) LVIDd: 4.2 cm (3.9 - 5.3) LVPWd: 1.1 cm (0.6 - 1.1) IVSs: 1.2 cm LVIDs: 2.6 cm LVPWs: 1.3 cm LAESV Index (A-L): 35.12 ml/m Ao Diam: 3.4 cm (2.0 - 3.7) AV Cusp: 1.8 cm (1.5 - 2.6) LA Diam: 3.3 cm (2.7 - 3.8) MV E Joseph: 0.91 m/s MV DecT: 218 ms MV A Joseph: 1.01 m/s MV E/A Ratio: 0.90 RAP: 5.00 mmHg RVSP: 35.73 mmHg FINDINGS -------- Sinus rhythm. This was a technically adequate study. The left ventricular size is normal. There is mild concentric left ventricular hypertrophy. Overa ll left ventricular systolic function is normal with, an EF between 55 - 60 %. The right ventricle is normal in size and function. LA is moderately dilated 34-39 ml/m2 RA appears enlarged. There is mild aortic valve sclerosis. Trace to mild aortic regurgitation. There is no evidence of aortic stenosis. The mitral valve leaflets are mildly thickened. There is trace to mild mitral regurgitation. Trace tricuspid regurgitation present. There is borderline pulmonary hypertension. The right vent ricular systolic pressure, as measured by Doppler, is 35.73mmHg. The pulmonic valve was not well visualized. The aortic root size is normal. Normal inferior vena cava with normal inspiratory collapse consistent with estimated right atrial pre ssure of 5 mmHg. There is no pericardial effusion. CONCLUSIONS -------- 1. Sinus rhythm. 2. This was a technically adequate study. 3. The left ventricular size is normal. 4. There is mild concentric left ventricular hypertrophy. 5. Overall left ventricular systolic function is normal with, an EF between 55 - 60 %. 6. LA is moderately dilated 34-39 ml/m2 7. RA appears enlarged. 8. There is mild aortic valve sclerosis. 9. Trace to mild aortic regurgitation. 10. The mitral valve leaflets are mildly thickened. 11. There is trace to mild mitral regurgitation. 12. Trace tricuspid regurgitation present. 13. There is borderline pulmonary hypertension. 14. The right ventricular systolic pressure, as measured by Doppler, is 35.73mmHg. 15. The pulmonic valve was not well visualized. 16. The aortic root size is normal. 17. There is no pericardial effusion. SKIN CARE SPECIALIST: Pj Joseph RDCS
[2017-12-27] MEDS ORDERED: ERGOCALCIFEROL 50,000 UNIT CAP PO SCH (09:00)
== END 2017-12-26 15:55 | disposition home or self-care (01) ==
LOC: EC 12:50 → 3OBS 15:55 → 3SUR 19:09
PROVIDERS: ADMIT Internal Medicine Geriatric Medicine; ATTEND Internal Medicine Geriatric Medicine
DX: R07.89 Other chest pain (principal); R11.0 Nausea; R06.02 Shortness of breath; R00.2 Palpitations; R74.8 Abnormal levels of other serum enzymes; I10 Essential (primary) hypertension; E78.5 Hyperlipidemia, unspecified; K21.9 Gastro-esophageal reflux disease without esophagitis; F32.9 Major depressive disorder, single episode, unspecified; G89.29 Other chronic pain; M54.9 Dorsalgia, unspecified; E11.41 Type 2 diabetes mellitus with diabetic mononeuropathy; G47.33 Obstructive sleep apnea (adult) (pediatric); Z99.89 Dependence on other enabling machines and devices; E66.9 Obesity, unspecified; Z68.37 Body mass index [BMI] 37.0-37.9, adult; H40.9 Unspecified glaucoma; H33.23 Serous retinal detachment, bilateral; G57.90 Unspecified mononeuropathy of unspecified lower limb; Z79.84 Long term (current) use of oral hypoglycemic drugs; Z79.899 Other long term (current) drug therapy; Z80.9 Family history of malignant neoplasm, unspecified; Z87.891 Personal history of nicotine dependence; Z85.828 Personal history of other malignant neoplasm of skin
CPT/HCPCS: 96376 ×2; 96365 ×2; 96366 ×6; 99285; 36415; 93306; 80061; 80053; 82550 ×2; 82553 ×2; 83735; 84484 ×2; 85025; 85610; 85730 ×2; 71046; G0378 ×2; J1644 ×2; 93005

== ENCOUNTER 2018-03-03 15:34 | Emergency (ER) | payer MEDICARE ==
[2018-03-03 15:40] VITALS: RESP 18
[2018-03-03] MEDS ORDERED: ONDANSETRON 4 MG/2 ML VIAL IVP STA ×2 (15:47→19:41)
[2018-03-03] MEDS ORDERED: SODIUM CHLORIDE 0.9% 1,000 ML IV STA (15:47)
--- NOTE | 2018-03-03 16:22 | ED ---
Nausea/Vomiting/Diarrhea HPI - General Chief complaint: Nausea/Vomiting/Diarrhea Stated complaint: NVD Time Seen by Provider: 03/03/18 15:43 Source: patient, RN notes reviewed Mode of arrival: ambulatory Limitations: no limitations - History of Present Illness Initial comments: 63-year-old female presents emergency Department with chief complaint of nausea vomiting diarrhea. Patient states symptoms started around 9 AM she did eat breakfast but did not feel well. Patient started driving North to [place] was states that she became very nauseated had a poor and vomited. Patient went home has been vomiting most the day along with diarrhea. Patient denies any hematemesis, coffee-ground emesis, melena or hematochezia. Patient denies any fevers or chills. Patient states that she just does not feel well states that she feels sick denies chest pain or shortness breath. - Related Data Home Medications Medication Instructions Recorded Confirmed Latanoprost 1 drop BOTH EYES HS 08/23/15 12/25/17 Omeprazole [PriLOSEC] 40 mg PO DAILY 08/23/15 12/25/17 Ergocalciferol (Vitamin D2) 50,000 unit PO ZARCO 12/25/17 12/25/17 [Vitamin D2] Fenofibrate Nanocrystallized 145 mg PO DAILY 12/25/17 12/25/17 [Fenofibrate] Ferrous Sulfate [Feosol] 325 mg PO DAILY 12/25/17 12/25/17 Gabapentin 600 mg PO TID 12/25/17 12/25/17 [place]-3 Fatty Acids/Fish Oil [Fish 1 cap PO DAILY 12/25/17 12/25/17 Oil 1,000 mg Softgel] buPROPion HCL [Wellbutrin XL] 300 mg PO DAILY 12/25/17 12/25/17 metFORMIN HCL [Glucophage] 500 mg PO BID 12/25/17 12/25/17 Previous Rx's Medication Instructions Recorded Ondansetron Odt [Zofran Odt] 4 mg PO Q8HR PRN #10 tab 03/03/18 Allergies Allergy/AdvReac Type Severity Reaction Status Date / Time No Known Allergies Allergy Verified 03/03/18 15:40 Review of Systems ROS Statement: Those systems with pertinent positive or pertinent negative responses have been documented in the HPI. ROS Other: All systems not noted in ROS Statement are negative. Past Medical History Past Medical History: Cancer, Eye Disorder, GERD/Reflux, Hyperlipidemia, Sleep Apnea/CPAP/BIPAP Additional Past Medical History / Comment(s): HX SKIN CA. GLAUCOMA FERNANDO, RETINA DETACHMENTS FERNANDO. USES CPAP. History of Any Multi-Drug Resistant Organisms: None Reported Past Surgical History: Orthopedic Surgery Additional Past Surgical History / Comment(s): vestibular testing x2, ALSO RETINAS. RT WRIST DEQUAIRVANE'S SURG. RT FOOT PLANTAR FASCIITIS SURG. COLONOSCOPY, EGD.rt foot bunionectomy Past Anesthesia/Blood Transfusion Reactions: No Reported Reaction Past Psychological History: Depression Smoking Status: Former smoker Past Alcohol Use History: None Reported Past Drug Use History: None Reported - Past Family History Mother Family Medical History: Cancer Father History Unknown: Yes General Exam Limitations: no limitations General appearance: alert, in no apparent distress Head exam: Present: atraumatic, normocephalic, normal inspection ENT exam: Present: normal exam, normal oropharynx, mucous membranes moist Neck exam: Present: normal inspection. Absent: tenderness, meningismus, lymphadenopathy Respiratory exam: Present: normal lung sounds bilaterally. Absent: respiratory distress, wheezes, rales, rhonchi, stridor Cardiovascular Exam: Present: regular rate, normal rhythm, normal heart sounds. Absent: systolic murmur, diastolic murmur, rubs, gallop, clicks GI/Abdominal exam: Present: soft, normal bowel sounds. Absent: distended, tenderness, guarding, rebound, rigid Back exam: Absent: CVA tenderness (R), CVA tenderness (L) Skin exam: Present: warm, dry, intact, normal color. Absent: rash Course Vital Signs 03/03/18 03/03/18 03/03/18 15:37 17:14 17:20 Temperature 97.5 F L Pulse Rate 79 Respiratory 18 Rate Blood Pressure 140/85 139/80 O2 Sat by Pulse 99 94 L 99 Oximetry 03/03/18 17:30 Temperature Pulse Rate Respiratory Rate Blood Pressure 139/80 O2 Sat by Pulse 97 Oximetry Medical Decision Making - Medical Decision Making 63-year-old female presented emergency from for nausea vomiting diarrhea. Patient has minimal discomfort. Lab work was obtained showed elevated LFTs. Ultrasound was obtained at this time showing gallstones no dilated gallbladder, no wall thickening or dilated common bile duct. Patient does state that she is improved she is requesting ice chips and we discharged with antiemetics. Patient will be given Gen. surgery on-call to follow-up with for cholecystectomy and return parameters were discussed. - Lab Data Result diagrams: 03/03/18 16:30 03/03/18 16:30 Lab Results 03/03/18 03/03/18 03/03/18 Range/Units 16:30 16:30 19:14 WBC 10.3 (3.8-10.6) k/uL RBC 5.31 (3.80-5.40) m/uL Hgb 14.9 (11.4-16.0) gm/dL Hct 46.4 H (34.0-46.0) % MCV 87.5 (80.0-100.0) fL MCH 28.0 (25.0-35.0) pg MCHC 32.1 (31.0-37.0) g/dL RDW 13.9 (11.5-15.5) % Plt Count 271 (150-450) k/uL Neutrophils % 88 % Lymphocytes % 9 % Monocytes % 3 % Eosinophils % 0 % Basophils % 0 % Neutrophils # 9.1 H (1.3-7.7) k/uL Lymphocytes # 0.9 L (1.0-4.8) k/uL Monocytes # 0.3 (0-1.0) k/uL Eosinophils # 0.0 (0-0.7) k/uL Basophils # 0.0 (0-0.2) k/uL Sodium 140 (137-145) mmol/L Potassium 4.4 (3.5-5.1) mmol/L Chloride 103 (98-107) mmol/L Carbon Dioxide 25 (22-30) mmol/L Anion Gap 12 mmol/L BUN 25 H (7-17) mg/dL Creatinine 0.77 (0.52-1.04) mg/dL Est GFR (CKD-EPI)AfAm >90 (>60 ml/min/1.73 sqM) Est GFR (CKD-EPI)NonAf 82 (>60 ml/min/1.73 sqM) Glucose 139 H (74-99) mg/dL Calcium 10.1 (8.4-10.2) mg/dL Total Bilirubin 1.2 (0.2-1.3) mg/dL AST 274 H (14-36) U/L ALT 213 H (9-52) U/L Alkaline Phosphatase 135 H (38-126) U/L Total Protein 7.5 (6.3-8.2) g/dL Albumin 4.6 (3.5-5.0) g/dL Amylase 57 (30-110) U/L Lipase 125 (23-300) U/L Urine Color Yellow Urine Appearance Clear (Clear) Urine pH 7.0 (5.0-8.0) Ur Specific [place] 1.019 (1.001-1.035) Urine Protein Trace H (Negative) Urine Glucose (UA) Negative (Negative) Urine Ketones Trace H (Negative) Urine Blood Negative (Negative) Urine Nitrite Negative (Negative) Urine Bilirubin Negative (Negative) Urine Urobilinogen 3.0 (<2.0) mg/dL Ur Leukocyte Esterase Negative (Negative) Disposition Clinical Impression: Cholelithiasis, Nausea vomiting and diarrhea Disposition: HOME SELF-CARE Condition: Stable Instructions: Acute Nausea and Vomiting (ED), Gallstones (ED) Additional Instructions: Please return to the Emergency Department if symptoms worsen or any other concerns. Prescriptions: Ondansetron Odt [Zofran Odt] 4 mg PO Q8HR PRN #10 tab PRN Reason: Nausea Is patient prescribed a controlled substance at d/c from ED?: No Referrals: Daryn Real MD [Primary Care Provider] - 1-2 days Matteo Salas MD [STAFF PHYSICIAN] - 1-2 days Time of Disposition: 19:43
[2018-03-03 16:55] LABS: ALT 213 U/L (9-52); AST 274 U/L (14-36); Albumin 4.6 g/dL (3.5-5.0); Alkaline Phosphatase 135 U/L (38-126); Amylase 57 U/L (30-110); Anion Gap 12 mmol/L; Blood Urea Nitrogen 25 mg/dL (7-17); Calcium 10.1 mg/dL (8.4-10.2); Carbon Dioxide 25 mmol/L (22-30); Chloride 103 mmol/L (98-107); Glucose 139 mg/dL (74-99); Lipase 125 U/L (23-300); Potassium 4.4 mmol/L (3.5-5.1); Sodium 140 mmol/L (137-145); Total Bilirubin 1.2 mg/dL (0.2-1.3); Total Protein 7.5 g/dL (6.3-8.2)
[2018-03-03 17:00] LABS: Basophils % (A) 0 %; Eosinophils % (A) 0 %; HCT 46.4 % (34.0-46.0); HGB 14.9 gm/dL (11.4-16.0); Lymphocytes # (A) 0.9 k/uL (1.0-4.8); Lymphocytes % (A) 9 %; MCHC 32.1 g/dL (31.0-37.0); MCV 87.5 fL (80.0-100.0); Mean Platelet Volume 6.9; Monocytes # (A) 0.3 k/uL (0-1.0); Monocytes % (A) 3 %; Neutrophils # (A) 9.1 k/uL (1.3-7.7); Neutrophils % (A) 88 %; Platelet Count 271 k/uL (150-450); RBC 5.31 m/uL (3.80-5.40); RDW 13.9 % (11.5-15.5); WBC 10.3 k/uL (3.8-10.6)
[2018-03-03] MEDS ORDERED: diphenhydrAMINE 50 MG/ML 1 ML VIAL IVP STA (17:14)
[2018-03-03] MEDS ORDERED: METOCLOPRAMIDE 5 MG/ML 2 ML VIAL IVP STA (17:14)
[2018-03-03] MEDS ORDERED: SODIUM CHLORIDE 0.9% 1,000 ML IV ONE (17:15)
--- NOTE | 2018-03-03 18:59 | US ---
EXAMINATION TYPE: US gallbladder DATE OF EXAM: 03/03/2018 COMPARISON: NONE CLINICAL HISTORY: Pain. Nausea. Difficult exam due to patient's body habitus EXAM MEASUREMENTS: Liver Length: 20.9 cm Gallbladder Wall: 0.2 cm CBD: 0.4 cm Right Kidney: 10.1 x 4.3 x 4.6 cm Pancreas: Obscured by bowel gas Liver: Attenuating, enlarged. Heterogeneous echotexture. Dilated ducts visualized Gallbladder: Multiple tiny echogenic foci visualized. Probable sludge visualized Evidence for sonographic Montiel's sign: Yes CBD: wnl as visualized, distal portion obscured by bowel gas Right Kidney: No hydronephrosis or masses seen IMPRESSION: There are multiple gallstones as well as echogenic bile. No dilated ducts. Fatty infilt ration of the liver. There is probably hepatomegaly.
[2018-03-03 19:19] LABS: Appearance,Urine Clear (Clear); Bilirubin,Urine Negative (Negative); Blood,Urine Negative (Negative); Color,Urine Yellow; Glucose,Urine (UA) Negative (Negative); Ketones,Urine Trace (Negative); Leukocyte Esterase,Urine Negative (Negative); Nitrite,Urine Negative (Negative); Protein,Urine Trace (Negative); Specific Gravity,Urine 1.019 (1.001-1.035)
[2018-03-03] MEDS ORDERED: ONDANSETRON 4 MG ODT STARTER PACK 2 TAB BTL PO STA (19:41)
[2018-03-03 20:12] VITALS: BP 137/82; PULSE 87; TEMP 98.4
[2018-03-03 21:07] LABS: Hepatitis A AB IgM Index 0.01; Hepatitis A Antibody IgM NEGATIVE
[2018-03-04 04:55] LABS: Hepatitis B Core IgM Non-Reactive (Non-Reactive)
== END 2018-03-03 20:09 | disposition home or self-care (01) ==
LOC: EC 15:34
DX: K80.20 Calculus of gallbladder without cholecystitis without obstruction (principal); R19.7 Diarrhea, unspecified; R79.89 Other specified abnormal findings of blood chemistry; E78.5 Hyperlipidemia, unspecified; K21.9 Gastro-esophageal reflux disease without esophagitis; H40.9 Unspecified glaucoma; H33.23 Serous retinal detachment, bilateral; G47.30 Sleep apnea, unspecified; F32.9 Major depressive disorder, single episode, unspecified; Z87.891 Personal history of nicotine dependence; Z79.84 Long term (current) use of oral hypoglycemic drugs; Z79.899 Other long term (current) drug therapy; Z99.89 Dependence on other enabling machines and devices
CPT/HCPCS: 36415; 80053; 80074; 82150; 83690; 85025; 81003; 76705; 99284; 96374; 96375 ×2; 96376; 96361 ×4; J1200; J2765; J2405; S0119

== ENCOUNTER 2018-04-09 06:26 | Day surgery (SDC) | payer MEDICARE ==
[2018-04-06 15:38] VITALS: BMI 34.1
[~2018-04-09 06:26] MED LIST: DEXAMETHASONE SOD PHOSPHATE 10 MG/ML 1 ML VIAL IV ONE; HEPARIN SODIUM,PORCINE 5,000 UNIT/ML 1 ML VIAL SQ ONE; LACTATED RINGERS 1,000 ML IV SCH; MORPHINE SULFATE 2 MG/ML SYRINGE IV PRN; ONDANSETRON 4 MG/2 ML VIAL IVP ONE; ONDANSETRON 4 MG/2 ML VIAL IVP PRN; ceFAZolin IN SWFI 2 GM/20 ML SYRINGE IVP ONE
[2018-04-09] MEDS ORDERED: LIDOCAINE 1% 20 ML VIAL (10MG/ML) FOR IV START INTRADERMA ONE (06:46)
[2018-04-09 06:56] LABS: Glucose,Whole Blood 84 mg/dL (75-99)
[2018-04-09] MEDS ORDERED: BUPIVACAIN-EPI 0.25%-1:200,000 30 ML VIAL SQ ONE (08:00)
[2018-04-09] MEDS ORDERED: GLYCOPYRROLATE 0.2 MG/ML 2 ML VIAL ONE (08:05)
[2018-04-09] MEDS ORDERED: SUCCINYLCHOLINE CHLORIDE 100 MG/5 ML SYR IV ONE (08:05)
[2018-04-09] MEDS ORDERED: fentaNYL (PF) 50 MCG/ML 2 ML AMP ONE (08:05)
[2018-04-09] MEDS ORDERED: LIDOCAINE 1% INJ 10MG/ML (20 ML MDV) ONE (08:05)
[2018-04-09] MEDS ORDERED: PROPOFOL 10 MG/ML 20 ML VIAL IV ONE (08:05)
[2018-04-09] MEDS ORDERED: ROCURONIUM BROMIDE 10 MG/ML 10 ML VIAL IV ONE (08:05)
[2018-04-09] MEDS ORDERED: MIDAZOLAM 2 MG/2 ML VIAL ONE (08:05)
[2018-04-09] MEDS ORDERED: NEOSTIGMINE 1 MG/ML 10 ML VIAL ONE (08:05)
--- NOTE | 2018-04-09 08:06 | P.GSHP ---
History of Present Illness H&P Date: 04/09/18 Chief Complaint: Right upper quadrant pain This is a 63-year-old female who presents today for laparoscopic cholecystectomy. Patient's had complaints of right quadrant pain. She is found have gallstones. Past Medical History Past Medical History: Cancer, Diabetes Mellitus, Eye Disorder, GERD/Reflux, Hyperlipidemia, Sleep Apnea/CPAP/BIPAP, Thyroid Disorder Additional Past Medical History / Comment(s): HX SKIN CA. GLAUCOMA FERNANDO, RETINA DETACHMENTS FERNANDO. USES CPAP, seasonal allergy, thyroid nodules History of Any Multi-Drug Resistant Organisms: None Reported Past Surgical History: Orthopedic Surgery Additional Past Surgical History / Comment(s): vestibular testing x2, ALSO RETINAS. RT WRIST DEQUAIRVANE'S SURG. RT FOOT PLANTAR FASCIITIS SURG. COLONOSCOPY, EGD.rt foot bunionectomy, fernando cataract surgery Past Anesthesia/Blood Transfusion Reactions: No Reported Reaction, Motion Sickness Smoking Status: Former smoker - Past Family History Mother Family Medical History: Cancer Father History Unknown: Yes Daughter(s) Family Medical History: Blood Disorder Additional Family Medical History / Comment(s): ITP Medications and Allergies Home Medications Medication Instructions Recorded Confirmed Type Latanoprost 1 drop LEFT EYE HS 08/23/15 04/06/18 History Omeprazole [PriLOSEC] 40 mg PO DAILY 08/23/15 04/06/18 History Ergocalciferol (Vitamin D2) 50,000 unit PO ZARCO 12/25/17 04/06/18 History [Vitamin D2] Ferrous Sulfate [Feosol] 325 mg PO DAILY 12/25/17 04/06/18 History [place]-3 Fatty Acids/Fish Oil [Fish 1 cap PO DAILY 12/25/17 04/06/18 History Oil 1,000 mg Softgel] buPROPion HCL [Wellbutrin XL] 300 mg PO DAILY 12/25/17 04/06/18 History metFORMIN HCL [Glucophage] 500 mg PO BID 12/25/17 04/06/18 History Atorvastatin [Lipitor] 40 mg PO DAILY 04/06/18 04/06/18 History Difluprednate [Durezol] 1 drop RIGHT EYE DAILY 04/06/18 04/06/18 History Timolol 0.5% Ophth Soln [Timoptic 1 drop RIGHT EYE BID 11/27/18 11/27/18 History 0.5% Ophth Soln] Allergies Allergy/AdvReac Type Severity Reaction Status Date / Time No Known Allergies Allergy Verified 04/06/18 15:23 Surgical - Exam Vital Signs Temp Pulse Resp BP Pulse Ox 98.0 F 72 18 123/73 97 04/09/18 06:45 04/09/18 06:45 04/09/18 06:45 04/09/18 06:45 04/09/18 06:45 - General well developed, no distress - Eyes PERRL - ENT normal pinna - Neck no masses - Respiratory normal expansion - Cardiovascular Rhythm: regular - Abdomen Abdomen: soft, non tender Assessment and Plan Assessment: Symptomatic cholelithiasis Right upper quadrant pain We will perform laparoscopic cholecystectomy.
--- NOTE | 2018-04-09 09:07 | P.OP ---
Date of Procedure: 04/09/18 Preoperative Diagnosis: Cholecystitis Cholelithiasis Postoperative Diagnosis: Cholecystitis Cholelithiasis Procedure(s) Performed: Laparoscopic cholecystectomy Anesthesia: [place] Surgeon: Matteo Salas Pathology: other (gAll bladder) Description of Procedure: The patient was placed on the operating table. The patient received a general endotracheal tube anesthesia. The patients abdomen was prepped and draped in the usual sterile fashion. Through an infraumbilical stab incision, the fascia of the anterior abdominal wall was grasped with a pair of Kochers and then the Veress needle was placed in the peritoneal cavity. Position of the Veress needle was confirmed with positive drop test. The abdomen was then insufflated. After adequate insufflation, the 10 mm trocar was placed in the peritoneal cavity. Following this the laparoscope was placed in the peritoneal cavity. The patient was placed in the head-up, right side up position and then a 5 mm trocar was placed in the right lateral and right subcostal position under direct visualization. A 8 mm trocar was placed in the epigastric position. The gallbladder was grasped in the fundus and infundibulum. Traction on the gallbladder was placed in the lateral and the cephalad positions. The triangle of Calot was visualized.. The cystic duct was bluntly dissected until the union of the cystic duct and common bile duct was seen. The cystic duct was then divided and sealed with the Harmonic scissors. A PDS Endoloop was then placed throughout the cystic duct stump. The cystic artery divided and sealed with the Harmonic scissors. The gallbladder was then removed from the liver bed using Harmonic scissors. The gallbladder was then extracted through the epigastric port site. Operative field was checked for any bleeding spots and Harmonic scissors was used to coagulate the liver bed. The abdomen was irrigated. The trocars were removed. The skin was closed using interrupted 3-0 Vicryl suture. Dermabond dressing were applied. The patient tolerated the procedure well.
[2018-04-09] MEDS: HYDROmorphone 0.5 MG/0.5 ML SYRINGE IVP PRN ×4 (09:10→09:31)
[2018-04-09 09:12] VITALS: TEMP 97.3
[2018-04-09] MEDS ORDERED: METOCLOPRAMIDE 5 MG/ML 2 ML VIAL IVP ONE (09:12)
[2018-04-09 09:25] LABS: Glucose,Whole Blood 153 mg/dL (75-99)
[2018-04-09] MEDS ORDERED: HYDROcodone/APAP 7.5-325MG 1 EACH TAB PO ONE (10:24)
[2018-04-09 11:22] VITALS: BP 112/59; PULSE 63; RESP 18
== END 2018-04-09 11:40 | disposition home or self-care (01) ==
LOC: OR 06:26
PROVIDERS: ATTEND Surgery
DX: K80.10 Calculus of gallbladder with chronic cholecystitis without obstruction (principal); E11.9 Type 2 diabetes mellitus without complications; K21.9 Gastro-esophageal reflux disease without esophagitis; E78.5 Hyperlipidemia, unspecified; G47.30 Sleep apnea, unspecified; E04.1 Nontoxic single thyroid nodule; H40.9 Unspecified glaucoma; H33.23 Serous retinal detachment, bilateral; J30.2 Other seasonal allergic rhinitis; R10.9 Unspecified abdominal pain; Z79.84 Long term (current) use of oral hypoglycemic drugs; Z79.899 Other long term (current) drug therapy; Z99.89 Dependence on other enabling machines and devices; Z85.828 Personal history of other malignant neoplasm of skin; Z87.891 Personal history of nicotine dependence
CPT/HCPCS: 88304; 47562; J2250; J1644; J1100; J2710; J2765; J2405; J2001; J3010; J0330; J2704; J1170; J0690

== ENCOUNTER → 2018-06-25 | Outpatient (CLI) | payer MEDICARE | LOC: LABWHC1 16:43 | PROVIDERS: ATTEND Otolaryngology | DX: J30.89 Other allergic rhinitis (principal) | CPT/HCPCS: 36415; 86001 ==

== ENCOUNTER → 2018-07-16 | Outpatient (CLI) | payer MEDICARE ==
--- NOTE | 2018-07-19 07:10 | BD ---
EXAMINATION TYPE: Axial Bone Density DATE OF EXAM: 07/16/2018 COMPARISON: NONE CLINICAL HISTORY: Height: 63.5 Weight: 197.3 FRAX RISK QUESTIONS: Alcohol (3 or more units per day): no Family History (Parent hip fracture): no Glucocorticoids (More than 3mos): no (Ex: prednisone, prednisolone, methylprednisolone, dexamethasone, and hydrocortisone). History of Fracture in Adulthood: no Secondary Osteoporosis: 1. Type 1 Diabetes: no 2. Hyperthyroidism: no 3. Menopause before 45: no 4. Malnutrition: no 5. Chronic liver disease: no Rheumatoid Arthritis: no Current Tobacco Use: no RISK FACTORS HISTORY OF: Family History of Osteoporosis: yes Active: no Diet low in dairy products/other sources of calcium: yes Postmenopausal woman: sometime after age 44 Lost more than 2 inches in height since high school: no MEDICATIONS: eye drops, omeprazole, Lipitor, metformin, Wellbutrin, vit d Singulair Additional History: EXAM MEASUREMENTS: Bone mineral densitometry was performed using the [employer] System. Bone mineral density as measured about the Lumbar spine is: ----- L1-L4(G/cm2): 1.080 T Score Values are as follows: ----- L2: -2.0 ----- L3: -0.1 ----- L4: -0.7 ----- L1-L4: -0.8 Bone mineral density : baseline Bone mineral density about the R hip (g/cm2): 1.068 Bone mineral density about the L hip (g/cm2): 1.015 T Score values are as follows: -----R Neck: 0.2 -----L Neck: -0.2 -----R Total: 0.9 -----L Total: 0.7 Bone mineral density : baseline IMPRESSION: Normal (Values between +1 and -1 indicate normal bone mass). Consider repeating this study in 5 year s or sooner if there is some new clinical indication. NOTE: T-SCORE=SD OF THE YOUNG ADULT MEAN.
== END | disposition home or self-care (01) ==
LOC: RADBDWWP 16:28
PROVIDERS: ATTEND Internal Medicine
DX: M85.88 Other specified disorders of bone density and structure, other site (principal)
CPT/HCPCS: 77080

== ENCOUNTER → 2019-03-02 | Outpatient (CLI) | payer MEDICARE ==
--- NOTE | 2019-03-03 12:11 | MM ---
Reason for exam: screening (asymptomatic). Last mammogram was performed 1 year and 3 months ago. History: Patient is postmenopausal and has history of other cancer at age 57. Benign cyst aspiration of the left breast, October 28, 2004. Benign ultrasound-guided core biopsy of the left breast, October 28, 2004. Took progesterone for 4 months beginning at age 50. Physical Findings: A clinical breast exam by your physician is recommended on an annual basis and results should be correlated with mammographic findings. MG 3D Screening Mammo W/Cad Bilateral CC and MLO view(s) were taken. XCCL view(s) were taken of the right breast. Prior study comparison: November 30, 2017, bilateral MG 3d screening mammo w/cad. August 27, 2016, bilateral MG 3d screening mammo w/cad. There are scattered fibroglandular densities. Previous mammotome biopsy in the left breast. No significant changes when compared with prior studies. ASSESSMENT: Benign, BI-RAD 2 RECOMMENDATION: Routine screening mammogram of both breasts in 1 year.
== END | disposition home or self-care (01) ==
LOC: RADMAMWWP 11:05
PROVIDERS: ATTEND Obstetrics & Gynecology
DX: Z12.31 Encounter for screening mammogram for malignant neoplasm of breast (principal)
CPT/HCPCS: 77063; 77067

== ENCOUNTER → 2020-04-12 | Outpatient (CLI) | payer MEDICARE ==
--- NOTE | 2020-04-13 14:56 | MM ---
Reason for exam: screening (asymptomatic). Last mammogram was performed 1 year and 1 month ago. History: Patient is postmenopausal and has history of other cancer at age 57. Benign cyst aspiration of the left breast, October 28, 2004. Benign ultrasound-guided core biopsy of the left breast, October 28, 2004. Took progesterone for 4 months beginning at age 50. Physical Findings: A clinical breast exam by your physician is recommended on an annual basis and results should be correlated with mammographic findings. MG 3D Screening Mammo W/Cad Bilateral CC and MLO view(s) were taken. Prior study comparison: March 02, 2019, bilateral MG 3d screening mammo w/cad. November 30, 2017, bilateral MG 3d screening mammo w/cad. There are scattered fibroglandular densities. Previous mammotome biopsy in the left breast. No significant changes when compared with prior studies. ASSESSMENT: Benign, BI-RAD 2 RECOMMENDATION: Routine screening mammogram of both breasts in 1 year.
== END | disposition home or self-care (01) ==
LOC: RADMAMWWP 13:08
PROVIDERS: ATTEND Internal Medicine
DX: Z12.31 Encounter for screening mammogram for malignant neoplasm of breast (principal)
CPT/HCPCS: 77063; 77067

== ENCOUNTER 2021-08-21 06:16 | Day surgery (SDC) | payer MEDICARE ==
[2021-08-19 09:44] VITALS: BMI 26.7
[2021-08-21] MEDS ORDERED: LACTATED RINGERS 1,000 ML IV SCH (06:29)
[2021-08-21] MEDS ORDERED: LIDOCAINE 1% (10MG/ML) FOR IV START INTRADERMA PRN (06:29)
[2021-08-21] MEDS ORDERED: LACTATED RINGERS 1,000 ML IV ONE (06:38)
[2021-08-21 06:46] LABS: Glucose,Whole Blood 98 mg/dL (75-99)
[2021-08-21 06:49] VITALS: TEMP 98
[2021-08-21] MEDS ORDERED: PROPOFOL 10 MG/ML 20 ML VIAL IV ONE (07:44)
[2021-08-21] MEDS ORDERED: LIDOCAINE 1% INJ 10MG/ML (20 ML MDV) ONE (07:44)
--- NOTE | 2021-08-21 08:07 | P.PCN ---
Date of Procedure: 08/21/21 Procedure(s) Performed: BRIEF HISTORY: Patient is a 66-year-old [place] female scheduled for an elective colonoscopy as a part of evaluation of prior history of colon polyps. Her last colonoscopy was 6 years ago. PROCEDURE PERFORMED: Colonoscopy. PREOPERATIVE DIAGNOSIS: History of colon polyps. IV sedation per Anesthesia. PROCEDURE: After informed consent was obtained, the patient, was brought into the endoscopy unit. IV sedation was administered by Anesthesia under continuous monitoring. Digital rectal examination was normal. Initially the Olympus CF-160 flexible video colonoscope was then inserted in the rectum, gradually advanced into the cecum without any difficulty. Careful examination was performed as the scope was gradually being withdrawn. Ileocecal valve and the appendiceal orifice were visualized and appeared normal. Prep was excellent. The prep was somewhat poor in some areas of the colon. Mucosa of the cecum, ascending colon, transverse colon, descending colon, sigmoid colon, and rectum appeared normal. Retroflexion was performed in the rectum and no lesions were seen. The patient tolerated the procedure well. IMPRESSION: Normal-appearing colon from rectum to cecum with no evidence of colorectal neoplasia. RECOMMENDATIONS: Findings of this examination were discussed with the patient as well as a family.. She was advised to have a repeat colonoscopy in 5 years from now because of the prior history of colon polyps.
[2021-08-21 08:14] VITALS: RESP 16
[2021-08-21 08:24] VITALS: BP 101/58; PULSE 70
== END 2021-08-21 08:56 | disposition home or self-care (01) ==
LOC: ORWHC2ENDO 06:16
PROVIDERS: ATTEND Internal Medicine Gastroenterology
DX: Z86.010 Personal history of colon polyps (principal); E78.5 Hyperlipidemia, unspecified; E11.9 Type 2 diabetes mellitus without complications; H40.9 Unspecified glaucoma; Z79.899 Other long term (current) drug therapy; Z87.891 Personal history of nicotine dependence
CPT/HCPCS: 45378; J2001; J2704

== ENCOUNTER → 2021-09-09 | Outpatient (CLI) | payer MEDICARE ==
--- NOTE | 2021-09-09 13:58 | BD ---
EXAMINATION TYPE: Axial Bone Density DATE OF EXAM: 09/09/2021 COMPARISON: 07.16.2018 CLINICAL HISTORY: 66 years year old Female. ICD-10 CODE: Z78.0 MENOPAUSE Height: 62 Weight: 160 FRAX RISK QUESTIONS: NOTHING TO NOTE HERE RISK FACTORS HISTORY OF: Family History of Osteoporosis: YES, Diet low in dairy products/other sources of calcium: YES Postmenopausal woman: AFTER AGE 45 YRS OLD Take estrogen and/or progesterone medications: ONLY BCPs IN THE PAST FOR ABOUT 10 YRS Hyperparathyroidism: NO Adrenal Insufficiency: NO MEDICATIONS: Additional Medications: REFLUX MEDS, STATIN FOR CHOLESTEROL, METFORMIN, WELLBUTRIN, ZYRTEC Additional History: REFLUX, CHOLESTEROL, DIABETIC, ANXIETY, EXAM MEASUREMENTS: Bone mineral densitometry was performed using the [employer] System. Bone mineral density as measured about the Lumbar spine is: ----- L1-L4(G/cm2): 1.180 T Score Values are as follows: ----- L1: 0.3 ----- L2: 0.0 ----- L3: -0.1 ----- L4: -0.3 ----- L1-L4: 0.0 Bone mineral density has: Increased 7.7% since study of: 07.16.2018 Bone mineral density about the R hip (g/cm2): 1.069 Bone mineral density about the L hip (g/cm2): 1.050 T Score values are as follows: -----R Neck: -0.1 -----L Neck: -0.3 -----R Total: 0.5 -----L Total: 0.3 Bone mineral density has: Decreased -4.4% since study of: 07.16.2018 FRAX%s: The graph provided illustrates a 7.1% chance for a major osteoporotic fx and a 0.3% chance fo r the hips probability for fx in 10 years time. IMPRESSION: No evidence for osteoporosis or osteopenia NOTE: T-SCORE=SD OF THE YOUNG ADULT MEAN.
--- NOTE | 2021-09-10 09:39 | MM ---
Reason for exam: screening (asymptomatic). Last mammogram was performed 1 year and 5 months ago. History: Patient is postmenopausal and has history of other cancer at age 57. Benign cyst aspiration of the left breast, October 28, 2004. Benign ultrasound-guided core biopsy of the left breast, October 28, 2004. Took progesterone for 4 months beginning at age 50. Physical Findings: A clinical breast exam by your physician is recommended on an annual basis and results should be correlated with mammographic findings. MG 3D Screening Mammo W/Cad Bilateral CC and MLO view(s) were taken. Prior study comparison: April 12, 2020, bilateral MG 3d screening mammo w/cad. March 02, 2019, bilateral MG 3d screening mammo w/cad. November 30, 2017, bilateral MG 3d screening mammo w/cad. There are scattered fibroglandular densities. Finding #1: There are two 8mm masses located 8 cm from the nipple in the upper outer quadrant, middle, posterior position of the left breast. Finding #2: There are typically benign round calcifications in the left breast. New finding since April 12, 2020, March 02, 2019, and November 30, 2017. ASSESSMENT: Incomplete: need additional imaging evaluation, BI-RAD 0 RECOMMENDATION: Special view mammogram and ultrasound of the left breast. [facility] will attempt to contact patient to return for supplemental views and ultrasound.
== END | disposition home or self-care (01) ==
LOC: RADBDWWP 10:42
PROVIDERS: ATTEND Family Medicine
DX: Z12.31 Encounter for screening mammogram for malignant neoplasm of breast (principal); Z78.0 Asymptomatic menopausal state
CPT/HCPCS: 77063; 77067; 77080

== ENCOUNTER → 2021-09-11 | Outpatient (CLI) | payer MEDICARE ==
--- NOTE | 2021-09-12 10:39 | MM ---
Reason for exam: additional evaluation requested from abnormal screening. Last mammogram was performed less than 1 month ago. History: Patient is postmenopausal and has history of other cancer at age 57. Benign cyst aspiration of the left breast, October 28, 2004. Benign ultrasound-guided core biopsy of the left breast, October 28, 2004. Took progesterone for 4 months beginning at age 50. Physical Findings: A clinical breast exam by your physician is recommended on an annual basis and results should be correlated with mammographic findings. MG 3D Work Up W/Cad LT Spot compression CC, spot compression MLO, and LM view(s) were taken of the left breast. Prior study comparison: September 09, 2021, bilateral MG 3d screening mammo w/cad. April 12, 2020, bilateral MG 3d screening mammo w/cad. There are scattered fibroglandular densities. Finding: There is an equal density (isodense), indistinct round mass in the middle position of the left breast. There is no discrete abnormality including area of concern, posterior density. Short term follow up recommended. New finding since September 09, 2021 and April 12, 2020. Results were given to the patient verbally at the time of the exam. ASSESSMENT: Incomplete: need additional imaging evaluation, BI-RAD 0 RECOMMENDATION: Ultrasound of the left breast.
--- NOTE | 2021-09-12 10:45 | USB ---
Reason for exam: additional evaluation requested from abnormal screening. History: Patient is postmenopausal and has history of other cancer at age 57. Benign cyst aspiration of the left breast, October 28, 2004. Benign ultrasound-guided core biopsy of the left breast, October 28, 2004. Took progesterone for 4 months beginning at age 50. Physical Findings: A clinical breast exam by your physician is recommended on an annual basis and results should be correlated with mammographic findings. US Breast Workup Limited LT Technologist: Giovanna Dominguez Left limited breast ultrasound including focal area of concern, retroareolar and axilla demonstrates a 0.7 x 0.8 x 0.3cm oval, hyperechoic lesion at 9 o'clock, 7cm from nipple, questionable lipoma and a 0.6 x 0.5 x 0.3cm cystic versus anechoic lsion at 7 o'clock, 4cm from nipple. Results were given to the patient verbally at the time of the exam. ASSESSMENT: Probably benign, BI-RAD 3 RECOMMENDATION: Follow-up diagnostic mammogram and ultrasound of the left breast in 6 months.
== END | disposition home or self-care (01) ==
LOC: RADMAMWWP 15:05
PROVIDERS: ATTEND Family Medicine
DX: R92.8 Other abnormal and inconclusive findings on diagnostic imaging of breast (principal); N64.89 Other specified disorders of breast; Z78.0 Asymptomatic menopausal state
CPT/HCPCS: 77065; 76642; G0279; 77061

== ENCOUNTER → 2022-03-11 | Outpatient (CLI) | payer MEDICARE ==
--- NOTE | 2022-03-11 15:39 | MM ---
Reason for Exam: Follow-up at short interval from prior study. Last screening mammogram was performed 6 month(s) ago. Indicated Problems: Pain of the left side (Global) for 3 Week(s). Patient History: Menarche at age 11. First Full-Term at age 22. Postmenopausal. Other Cancer, age 57. Progesterone for 4 month starting at age 50. 10/28/2004, Benign Cyst Aspiration on the left side. 10/28/2004, Benign Ultrasound-Guided Core Biopsy on the left side. Risk Values: Maia 5 year model risk: 1.8%. NCI Lifetime model risk: 5.9%. Prior Study Comparison: 04/12/2020 Bilateral Screening Mammogram, [facility]. 09/09/2021 Bilateral Screening Mammogram, [facility]. 09/11/2021 Left Diagnostic Mammogram, [facility]. Tissue Density: Left: There are scattered fibroglandular densities. Findings: Analyzed By CAD. There are persistent nodularities within the left breast. These appear stable from comparison. Ultrasound can be performed for additional evaluation. Core marker clip is within the left breast. Benign calcifications in the left breast. No significant interval change is evident. Overall Assessment: Incomplete: need additional imaging evaluation, BI-RAD 0 Management: Diagnostic Breast Ultrasound of the left breast. A clinical breast exam by your physician is recommended on an annual basis and results should be correlated with mammographic findings. This exam should not preclude additional follow-up of suspicious palpable abnormalities. Results were given to the patient verbally at the time of exam. Electronically signed and approved by: Stephen Steiner D.O. Radiologis
--- NOTE | 2022-03-11 16:52 | USB ---
Reason for Exam: Follow-up at short interval from prior study. Patient History: Menarche at age 11. First Full-Term at age 22. Postmenopausal. Other cancer, age 57. Progesterone for 4 months from age 50 until age 50. 10/28/2004, Benign Cyst Aspiration on the left side. 10/28/2004, Benign Ultrasound-Guided Core Biopsy on the left side. Risk Values: Maia 5 year model risk: 1.8%. NCI Lifetime model risk: 5.9%. Prior Study Comparison: 04/12/2020 Bilateral Screening Mammogram, [facility]. 09/09/2021 Bilateral Screening Mammogram, [facility]. 09/11/2021 Left Diagnostic Mammogram, [facility]. Findings: The lower inner quadrant of the left breast and the retroareolar of the left breast were scanned. There is a stable hyperechoic area o'clock position 7 cm from the nipple under the subcutaneous tissue measuring 0.7 x 0.7 x 0.3 cm. This was present previously may be a small lipoma. There is a hypoechoic collection measuring 0.6 x 0.2 x 0.5 cm at 7:00 position 4 cm of the nipple. This was present previously. Overall Assessment: Benign, BI-RAD 2 Management: Screening Mammogram of both breasts in 6 months. A clinical breast exam by your physician is recommended on an annual basis and results should be correlated with mammographic findings. This exam should not preclude additional follow-up of suspicious palpable abnormalities. ??Results were given to the patient verbally at the time of exam. Electronically signed and approved by: Stephen Steiner D.O. Radiologis
== END | disposition home or self-care (01) ==
LOC: RADUSWWP 15:04
PROVIDERS: ATTEND Family Medicine
DX: R92.8 Other abnormal and inconclusive findings on diagnostic imaging of breast (principal); Z78.0 Asymptomatic menopausal state
CPT/HCPCS: 77065; 76642; G0279; 77061

== ENCOUNTER 2022-06-05 23:32 | Emergency (ER) | payer MEDICARE ==
[2022-06-06 00:16] VITALS: BP 120/72; PULSE 82; RESP 12; TEMP 97.5
[2022-06-06 00:40] LABS: Appearance,Urine Turbid (Clear); Bacteria,Urine Occasional /hpf; Bilirubin,Urine Negative (Negative); Blood,Urine Large (Negative); Color,Urine Red; Glucose,Urine (UA) Negative (Negative); Ketones,Urine Negative (Negative); Leukocyte Esterase,Urine Large (Negative); Nitrite,Urine Negative (Negative); PH, Urine 6.5 (5.0-8.0); Protein,Urine 2+ (Negative); RBC,Urine >182 /hpf (0-5); Urobilinogen,Urine <2.0 mg/dL (<2.0); WBC,Urine >182 /hpf (0-5)
[2022-06-06 00:42] LABS: Specific Gravity,Urine <1.050 (1.001-1.035)
[2022-06-06] MEDS ORDERED: CEPHALEXIN 500 MG CAP PO STA (00:49)
[2022-06-06] MEDS ORDERED: PHENAZOPYRIDINE 200 MG TAB PO STA (00:56)
--- NOTE | 2022-06-06 00:59 | ED ---
General Adult HPI - General Chief complaint: Abdominal Pain Stated complaint: Difficulty urinating Time Seen by Provider: 06/06/22 00:08 Source: patient, RN notes reviewed, old records reviewed Mode of arrival: ambulatory Limitations: no limitations - History of Present Illness Initial comments: This is a well-appearing 67-year-old female that presents ambulatory with complaints of dysuria, pink tinged urine for the past 2 days with low back pain. Denies any fevers. No nausea vomiting or diarrhea. She does have a history of diabetes, GERD, hyperlipidemia. -: days(s) (2) Radiation: back (low) Severity scale (1-10): 2 Quality: aching Consistency: constant Treatments Prior to Arrival: none - Related Data Home Medications Medication Instructions Recorded Confirmed Latanoprost 1 drop BOTH EYES HS 08/23/15 08/19/21 buPROPion HCL [Wellbutrin XL] 300 mg PO DAILY 12/25/17 08/19/21 metFORMIN HCL [Glucophage] 500 mg PO HS 12/25/17 08/19/21 Brimonidine Tartrate [Alphagan P 1 drops BOTH EYES BID 08/19/21 08/19/21 0.2% Ophth Soln] Cetirizine HCl [Zyrtec] 10 mg PO DAILY 08/19/21 08/19/21 Mirabegron [Myrbetriq] 50 mg PO DAILY 08/19/21 08/19/21 Rosuvastatin [Crestor] 20 mg PO DAILY 08/19/21 08/19/21 Previous Rx's Medication Instructions Recorded Cephalexin [Keflex] 500 mg PO BID 7 Days #14 cap 06/06/22 Allergies Allergy/AdvReac Type Severity Reaction Status Date / Time No Known Allergies Allergy Verified 08/19/21 09:24 Review of Systems ROS Statement: Those systems with pertinent positive or pertinent negative responses have been documented in the HPI. ROS Other: All systems not noted in ROS Statement are negative. Past Medical History Past Medical History: Cancer, Diabetes Mellitus, Eye Disorder, GERD/Reflux, Hyperlipidemia, Sleep Apnea/CPAP/BIPAP, Thyroid Disorder Additional Past Medical History / Comment(s): HX SKIN CA. GLAUCOMA FERNANDO, RETINA DETACHMENTS FERNANDO. USES CPAP, seasonal allergy, thyroid nodules History of Any Multi-Drug Resistant Organisms: None Reported Past Surgical History: Orthopedic Surgery Additional Past Surgical History / Comment(s): vestibular testing x2, ALSO RETINAS. RT WRIST DEQUAIRVANE'S SURG. RT FOOT PLANTAR FASCIITIS SURG. COLONOSCOPY, EGD.rt foot bunionectomy, fernando cataract surgery Past Anesthesia/Blood Transfusion Reactions: No Reported Reaction, Motion Sickness Past Psychological History: Depression Smoking Status: Never smoker Past Alcohol Use History: None Reported Past Drug Use History: None Reported - Past Family History Mother Family Medical History: Cancer Father History Unknown: Yes Daughter(s) Family Medical History: Blood Disorder Additional Family Medical History / Comment(s): ITP General Exam Limitations: no limitations General appearance: alert, in no apparent distress Head exam: Present: atraumatic Neck exam: Absent: tenderness, meningismus Respiratory exam: Absent: respiratory distress, accessory muscle use Cardiovascular Exam: Present: regular rate Neurological exam: Present: alert, oriented X3, normal gait Psychiatric exam: Present: normal affect, normal mood Skin exam: Present: warm, dry, normal color. Absent: cyanosis, diaphoretic, petechiae, pallor Course Vital Signs 06/06/22 00:09 Temperature 97.5 F L Pulse Rate 82 Respiratory 12 Rate Blood Pressure 120/72 O2 Sat by Pulse 98 Oximetry Medical Decision Making - Medical Decision Making Urinalysis shows evidence of a urinary tract infection. She was given Pyridium for discomfort and a dose of Keflex. She was given a prescription for Keflex to take twice a day for the next 7 days. Strict return parameters were discussed. She is agreeable to this plan of care. Case discussed with Dr. Starr Was pt. sent in by a medical professional or institution? @ -no Did you speak to anyone other than the patient for history? @ -no Did you review nursing and triage notes? @ -yes i agree Were old charts reviewed? @ -yes previous labs normal GFR Differential Diagnosis? @ -Acute cystitis, pyelonephritis, urethritis, nephrolithiasis What testing was considered but not performed? (CT, X-rays, U/S, labs)? Why? @ Ultrasound was considered along with CT the patient is not have a fever, no flank pain. Symptoms have been present for 2 days. She was to return if any concerning symptoms, she will be treated for UTI What meds were considered but not given? Why? @ -none Did you discuss the management of the patient with other professionals? @ -no Did you reconcile home meds? @ -no Was smoking cessation discussed for >3mins.? @ -[none] Was critical care preformed (if so, how long)? @ -no Were there social determinants of health that impacted care today? How? (Homelessness, low income, unemployed, alcoholism, drug addiction, transportation, low edu. Level, literacy, decrease access to med. care, residential, rehab)? @ -none Was there de-escalation of care discussed even if they declined? (Discuss DNR or withdrawal of care, Hospice)? @ -no What co-morbidities impacted this encounter? (DM, HTN, Smoking, COPD, CAD, Cancer, CVA, Hep., AIDS, mental health diagnosis, sleep apnea, morbid obesity)? @ -Diabetes, GERD, hyperlipidemia Was patient admitted / discharged? @ -discharged Undiagnosed new problem with uncertain prognosis? @ -[none] Drug Therapy requiring intensive monitoring for toxicity (Heparin, Nitro, Insulin, Cardizem)? @ -none Were any procedures done? @ -no Diagnosis/symptom? @ -UTI Acute, or Chronic, or Acute on Chronic? @ -acute Uncomplicated (without systemic symptoms) or Complicated (systemic symptoms)? @ -Complicated Side effects of treatment? @ -[none] Exacerbation, Progression, or Severe Exacerbation] @ -[no] Poses a threat to life or bodily function? @ -[no] - Lab Data Lab Results 06/06/22 Range/Units 00:15 Urine Color Red Urine Appearance Turbid H (Clear) Urine pH 6.5 (5.0-8.0) Ur Specific [place] <1.050 H (1.001-1.035) Urine Protein 2+ H (Negative) Urine Glucose (UA) Negative (Negative) Urine Ketones Negative (Negative) Urine Blood Large H (Negative) Urine Nitrite Negative (Negative) Urine Bilirubin Negative (Negative) Urine Urobilinogen <2.0 (<2.0) mg/dL Ur Leukocyte Esterase Large H (Negative) Urine RBC >182 H (0-5) /hpf Urine WBC >182 H (0-5) /hpf Urine Bacteria Occasional H (None) /hpf Disposition Clinical Impression: UTI (urinary tract infection) Disposition: HOME SELF-CARE Condition: Good Instructions (If sedation given, give patient instructions): Urinary Tract Infection in Women (ED) Additional Instructions: Increase your fluid intake. Take antibiotics as prescribed. Follow-up with your primary care doctor next week. Return to the emergency room with any new or concerning symptoms including fever, persistent nausea vomiting or back pain. Prescriptions: Cephalexin [Keflex] 500 mg PO BID 7 Days #14 cap Is patient prescribed a controlled substance at d/c from ED?: No Referrals: [facility] [Primary Care Provider] - 1-2 days Time of Disposition: 00:56
== END 2022-06-06 01:19 | disposition home or self-care (01) ==
LOC: EC 23:32
DX: N39.0 Urinary tract infection, site not specified (principal); E11.9 Type 2 diabetes mellitus without complications; E78.5 Hyperlipidemia, unspecified; G47.30 Sleep apnea, unspecified; F32.A Depression, unspecified; Z79.84 Long term (current) use of oral hypoglycemic drugs; Z79.899 Other long term (current) drug therapy
CPT/HCPCS: 81001; 87077; 87086; 87186; 99284

== ENCOUNTER → 2022-10-13 | Outpatient (CLI) | payer MEDICARE ==
--- NOTE | 2022-10-14 08:06 | MM ---
Reason for Exam: Screening (asymptomatic). Last mammogram was performed 1 year(s) and 1 month(s) ago. Patient History: Menarche at age 11. First Full-Term at age 22. Postmenopausal. Patient has history of breast feeding. Progesterone for 4 months starting at age 50. 10/28/2004, Benign Cyst Aspiration on the left side. 10/28/2004, Benign Ultrasound-Guided Core Biopsy on the left side. Risk Values: Maia 5 year model risk: 1.8%. NCI Lifetime model risk: 5.9%. Prior Study Comparison: 11/22/2012 Bilateral Screening Mammogram, [facility]. 12/30/2013 Bilateral Diagnostic Mammogram, [facility]. 07/20/2015 Bilateral Screening Mammogram, [facility]. 08/27/2016 Bilateral Screening Mammogram, [facility]. 11/30/2017 Bilateral Screening Mammogram, [facility]. 03/02/2019 Bilateral Screening Mammogram, [facility]. 04/12/2020 Bilateral Screening Mammogram, [facility]. 09/09/2021 Bilateral Screening Mammogram, [facility]. 09/11/2021 Left Diagnostic Mammogram, [facility]. 09/11/2021 Left Diagnostic Ultrasound, [facility]. 03/11/2022 Left US breast limited LT, [facility]. 03/11/2022 Left MG 3D diag mammo w/cad LT, [facility]. Tissue Density: There are scattered fibroglandular densities. Findings: Analyzed By CAD. There is no suspicious group of microcalcifications or new suspicious mass in either breast. Overall Assessment: Negative, BI-RAD 1 Management: Screening Mammogram of both breasts in 1 year. . Patient should continue monthly self-breast exams. A clinical breast exam by your physician is recommended on an annual basis. This exam should not preclude additional follow-up of suspicious palpable abnormalities. Note on Maia scores and lifetime risk: 1. A Maia score greater than 3% is considered moderate risk. If this is the case, consider specialist referral to assess eligibility for a risk reducing agent. 2. If overall lifetime risk for the development of breast cancer is 20% or higher, the patient may qualify for future screening with alternating mammogram and breast MRI. Electronically signed and approved by: Suman Mccall M.D. Radiologis
== END | disposition home or self-care (01) ==
LOC: RADMAMWWP 13:34
PROVIDERS: ATTEND Family Medicine
DX: Z12.31 Encounter for screening mammogram for malignant neoplasm of breast (principal); Z78.0 Asymptomatic menopausal state
CPT/HCPCS: 77063; 77067

== ENCOUNTER 2023-10-10 04:19 | Emergency (ER) | payer MEDICARE ==
[2023-10-10] MEDS: MORPHINE SULFATE 4 MG/ML SYRINGE IV STA ×2 (04:57→06:50)
[2023-10-10] MEDS: ONDANSETRON 4 MG/2 ML VIAL IVP STA (04:57)
[2023-10-10 05:01] LABS: Basophils % (A) 0 %; Eosinophils # (A) 0.1 k/uL (0-0.7); Eosinophils % (A) 1 %; HCT 45.6 % (34.0-46.0); HGB 14.8 gm/dL (11.4-16.0); Lymphocytes # (A) 1.6 k/uL (1.0-4.8); Lymphocytes % (A) 12 %; MCH 29.2 pg (25.0-35.0); MCHC 32.4 g/dL (31.0-37.0); MCV 90.3 fL (80.0-100.0); Mean Platelet Volume 8.6; Monocytes # (A) 0.4 k/uL (0-1.0); Monocytes % (A) 3 %; Neutrophils # (A) 11.7 k/uL (1.3-7.7); Neutrophils % (A) 84 %; Platelet Count 229 k/uL (150-450); RBC 5.05 m/uL (3.80-5.40); RDW 14.6 % (11.5-15.5)
[2023-10-10] MEDS: SODIUM CHLORIDE 0.9% 500 ML 500 ML IV STA (05:01)
[2023-10-10 05:22] LABS: ALT 94 U/L (4-34); AST 70 U/L (14-36); African American GFR (CKD) 87 (>60 ml/min/1.73 sqM); Albumin 4.8 g/dL (3.5-5.0); Alkaline Phosphatase 65 U/L (38-126); Amylase 62 U/L (30-110); Anion Gap 8 mmol/L; Blood Urea Nitrogen 24 mg/dL (7-17); Calcium 9.6 mg/dL (8.4-10.2); Carbon Dioxide 25 mmol/L (22-30); Chloride 104 mmol/L (98-107); Glucose 188 mg/dL (74-99); Lipase 129 U/L (23-300); Non-African American GFR(CKD) 76 (>60 ml/min/1.73 sqM); Sodium 137 mmol/L (137-145); Total Bilirubin 1.3 mg/dL (0.2-1.3); Total Protein 7.5 g/dL (6.3-8.2)
[2023-10-10 06:03] VITALS: RESP 18
[2023-10-10] MEDS: METOCLOPRAMIDE 5 MG/ML 2 ML VIAL IVP STA (06:50)
--- NOTE | 2023-10-10 06:58 | CT ---
EXAMINATION TYPE: CT abdomen pelvis wo con DATE OF EXAM: 10/10/2023 COMPARISON: None HISTORY: Patient arrives with n/v/d and abdominal pain that started around 2300 CT DLP: 600.8 mGycm Automated exposure control for dose reduction was used. TECHNIQUE: Helical acquisition of images was performed from the lung bases through the pelvis. FINDINGS: The lungs are clear. There is a large hiatal hernia with a partial intrathoracic stomach and colon. T here is a volvulus of the right colon which is massively dilated with air and particulate matter. The gallbladder is surgically absent. There is no biliary ductal dilatation. There is no organomegaly of the liver, pancreas, spleen or adrenal glands. There are no renal calcifications or hydronephrosis. The caliber of the abdominal aorta is normal and there is no retroperitoneal adenopathy or hemorrhage . There is no free intraperitoneal air or fluid. There is no pelvic mass, free fluid, abscess or adenopathy. There are surgical absence of the uterus. The osseous structures and soft tissues are unremarkable. IMPRESSION: Markedly dilated right colon and cecum secondary to colonic volvulus secondary to large hiatal hernia with intrathoracic stomach and intrathoracic segment of colon.
--- NOTE | 2023-10-10 07:03 | ED ---
Abdominal Pain HPI - General Chief Complaint: Abdominal Pain Stated Complaint: abd pain NVD Time Seen by Provider: 10/10/23 04:24 Source: patient, EMS Mode of arrival: EMS Limitations: no limitations - History of Present Illness Initial Comments: This patient is a 68-year-old woman who presents with severe abdominal pain that started a number of hours ago and has progressively gotten worse. She has had a number of rounds of nausea and vomiting and has not tolerating any oral intake. She did have 1 bowel movement she describes diarrhea. The patient believes she may have food poisoning. She has not had fever or chills. No change in urination. MD Complaint: abdominal pain -: hour(s) Location: diffuse Radiation: none Migration to: no migration Severity: severe Quality: aching Consistency: constant Improves With: nothing Worsens With: nothing Associated Symptoms: vomiting, diarrhea - Related Data Home Medications Medication Instructions Recorded Confirmed Latanoprost 1 drop BOTH EYES HS 08/23/15 08/19/21 buPROPion HCL [Wellbutrin XL] 300 mg PO DAILY 12/25/17 08/19/21 metFORMIN HCL [Glucophage] 500 mg PO HS 12/25/17 08/19/21 Brimonidine Tartrate [Alphagan P 1 drops BOTH EYES BID 08/19/21 08/19/21 0.2% Ophth Soln] Cetirizine HCl [Zyrtec] 10 mg PO DAILY 08/19/21 08/19/21 Mirabegron [Myrbetriq] 50 mg PO DAILY 08/19/21 08/19/21 Rosuvastatin [Crestor] 20 mg PO DAILY 08/19/21 08/19/21 Previous Rx's Medication Instructions Recorded Cephalexin [Keflex] 500 mg PO BID 7 Days #14 cap 06/06/22 Allergies Allergy/AdvReac Type Severity Reaction Status Date / Time No Known Allergies Allergy Verified 08/19/21 09:24 Review of Systems ROS Statement: Those systems with pertinent positive or pertinent negative responses have been documented in the HPI. ROS Other: All systems not noted in ROS Statement are negative. Constitutional: Denies: fever, chills Respiratory: Denies: cough, dyspnea Cardiovascular: Denies: chest pain, palpitations Gastrointestinal: Reports: abdominal pain, nausea, vomiting, diarrhea. Denies: constipation, hematemesis, melena, hematochezia Genitourinary: Denies: dysuria, hematuria Musculoskeletal: Denies: back pain Skin: Denies: rash Neurological: Denies: headache, weakness, numbness Past Medical History Past Medical History: Cancer, Diabetes Mellitus, Eye Disorder, GERD/Reflux, Hyperlipidemia, Sleep Apnea/CPAP/BIPAP, Thyroid Disorder Additional Past Medical History / Comment(s): HX SKIN CA. GLAUCOMA FERNANDO, RETINA DETACHMENTS FERNANDO. USES CPAP, seasonal allergy, thyroid nodules History of Any Multi-Drug Resistant Organisms: None Reported Past Surgical History: Orthopedic Surgery Additional Past Surgical History / Comment(s): vestibular testing x2, ALSO RETINAS. RT WRIST DEQUAIRVANE'S SURG. RT FOOT PLANTAR FASCIITIS SURG. COLONOSCOPY, EGD.rt foot bunionectomy, fernando cataract surgery Past Anesthesia/Blood Transfusion Reactions: No Reported Reaction, Motion Sickness Past Psychological History: Depression Smoking Status: Never smoker Past Alcohol Use History: None Reported Past Drug Use History: None Reported - Past Family History Mother Family Medical History: Cancer Father History Unknown: Yes Daughter(s) Family Medical History: Blood Disorder Additional Family Medical History / Comment(s): ITP General Exam Limitations: no limitations General appearance: alert, in no apparent distress Head exam: Present: atraumatic, normocephalic Eye exam: Present: normal appearance. Absent: scleral icterus, conjunctival injection ENT exam: Present: mucous membranes dry Neck exam: Present: normal inspection Respiratory exam: Present: normal lung sounds bilaterally. Absent: respiratory distress, wheezes, rales, rhonchi, stridor, accessory muscle use Cardiovascular Exam: Present: regular rate, normal rhythm, normal heart sounds. Absent: systolic murmur, diastolic murmur, rubs, gallop GI/Abdominal exam: Present: soft, tenderness, hyperactive bowel sounds. Absent: distended, guarding, rebound, rigid, mass, pulsatile mass, hernia External exam: Present: normal external exam Extremities exam: Present: normal inspection, normal capillary refill. Absent: pedal edema, calf tenderness Back exam: Present: normal inspection. Absent: CVA tenderness (R), CVA tenderness (L) Neurological exam: Present: alert Skin exam: Present: warm, dry, intact, normal color. Absent: rash Course Vital Signs 10/10/23 10/10/23 10/10/23 04:20 04:28 05:33 Temperature 98.0 F Pulse Rate 70 72 70 Respiratory 18 18 18 Rate Blood Pressure 137/74 137/74 135/73 O2 Sat by Pulse 97 96 93 L Oximetry 10/10/23 10/10/23 06:00 07:51 Temperature 98.1 F Pulse Rate 76 78 Respiratory 18 18 Rate Blood Pressure 152/91 106/57 O2 Sat by Pulse 94 L 98 Oximetry Medical Decision Making - Medical Decision Making Patient is a 68-year-old woman developing pain and vomiting that has become severe. The patient's workup reveals what appears to be cecal volvulus. Case discussed with patient and she was informed she will probably need to go to the OR. I then went and paged surgeon on-call who was preparing to take patient OR. The patient then subsequently informed me that she did have a surgeon at [facility] that she wanted to see. We called the transfer team and they will accept. Discussed with Dr. Toscano. The patient had CT scan that I interpreted as revealing what appears to be acute cecal volvulus. No free air noted. Was pt. sent in by a medical professional or institution (, PA, WET END SUPERVISOR, urgent care, hospital, or usp...) When possible be specific @ -[No] Did you speak to anyone other than the patient for history (EMS, parent, family, police, friend...)? What history was obtained from this source @ -[No] Did you review nursing and triage notes (agree or disagree)? Why? @ -[I reviewed and agree with nursing and triage notes] Were old charts reviewed (outside hosp., previous admission, EMS record, old EKG, old radiological studies, urgent care reports/EKG's, usp records)? Report findings @ -[No old charts were reviewed] Differential Diagnosis (chest pain, altered mental status, abdominal pain women, abdominal pain men, vaginal bleeding, weakness, fever, dyspnea, syncope, headache, dizziness, GI bleed, back pain, seizure, CVA, palpatations, mental health, musculoskeletal)? @ -[Differential Abdominal Pain Women: Appendicitis, Cholecystitis, diverticulosis, ischemic bowel, pancreatitis, hepatitis, UTI, gastroenteritis, AAA, incarcerated hernia, bowel obstruction, constipation, inflammatory bowel, hepatitis, peptic ulcer disease, splenic infarction, perforated viscus, vulvitis, ovarian torsion, PID, kidney stone, placenta abruption, this is not meant to be an all-inclusive list EKG interpreted by me (3pts min.). @ -[As above] X-rays interpreted by me (1pt min.). @ -[None done] CT interpreted by me (1pt min.). @ -[I interpreted as above U/S interpreted by me (1pt. min.). @ -[None done] What testing was considered but not performed or refused? (CT, X-rays, U/S, labs)? Why? @ -[None] What meds were considered but not given or refused? Why? @ -[None] Did you discuss the management of the patient with other professionals (professionals i.e. , PA, WET END SUPERVISOR, lab, RT, psych nurse, social media assistant, narrow gauge brakeman, teacher, recruitment officer, patient case manager)? Give summary @ -[No] Was smoking cessation discussed for >3mins.? @ -[No] Was critical care preformed (if so, how long)? @ -[Yes, 30 minutes Were there social determinants of health that impacted care today? How? (Homelessness, low income, unemployed, alcoholism, drug addiction, transportation, low edu. Level, literacy, decrease access to med. care, long-term, rehab)? @ -[No] Was there de-escalation of care discussed even if they declined (Discuss DNR or withdrawal of care, Hospice)? DNR status @ -[No] What co-morbidities impacted this encounter? (DM, HTN, Smoking, COPD, CAD, Cancer, CVA, ARF, Chemo, Hep., AIDS, mental health diagnosis, sleep apnea, morbid obesity)? @ -[None] Was patient admitted / discharged? Hospital course, mention meds given and route, prescriptions, significant lab abnormalities, going to OR and other pertinent info. @ -[See above Undiagnosed new problem with uncertain prognosis? @ -[No] Drug Therapy requiring intensive monitoring for toxicity (Heparin, Nitro, Insulin, Cardizem)? @ -[No] Were any procedures done? @ -[No] Diagnosis/symptom? @ -[Abdominal pain Acute cecal volvulus Acute, or Chronic, or Acute on Chronic? @ -[Acute Uncomplicated (without systemic symptoms) or Complicated (systemic symptoms)? @ -[Uncomplicated Side effects of treatment? @ -[No] Exacerbation, Progression, or Severe Exacerbation? @ -[No] Poses a threat to life or bodily function? How? (Chest pain, [place], [place], pneumonia, PE, COPD, DKA, ARF, appy, cholecystitis, CVA, Diverticulitis, Homicidal, Suicidal, threat to staff... and all critical care pts) @ -[Yes, this is an acute surgical emergency requiring prompt surgical repair - Lab Data Result diagrams: 10/10/23 04:29 10/10/23 04:26 Lab Results 10/10/23 10/10/23 10/10/23 Range/Units 04:26 04:29 04:29 WBC 14.0 H (3.8-10.6) k/uL RBC 5.05 (3.80-5.40) m/uL Hgb 14.8 (11.4-16.0) gm/dL Hct 45.6 (34.0-46.0) % MCV 90.3 (80.0-100.0) fL MCH 29.2 (25.0-35.0) pg MCHC 32.4 (31.0-37.0) g/dL RDW 14.6 (11.5-15.5) % Plt Count 229 (150-450) k/uL MPV 8.6 Neutrophils % 84 % Lymphocytes % 12 % Monocytes % 3 % Eosinophils % 1 % Basophils % 0 % Neutrophils # 11.7 H (1.3-7.7) k/uL Lymphocytes # 1.6 (1.0-4.8) k/uL Monocytes # 0.4 (0-1.0) k/uL Eosinophils # 0.1 (0-0.7) k/uL Basophils # 0.0 (0-0.2) k/uL Sodium 137 (137-145) mmol/L Potassium 5.0 (3.5-5.1) mmol/L Chloride 104 (98-107) mmol/L Carbon Dioxide 25 (22-30) mmol/L Anion Gap 8 mmol/L BUN 24 H (7-17) mg/dL Creatinine 0.80 (0.52-1.04) mg/dL Est GFR (CKD-EPI)AfAm 87 (>60 ml/min/1.73 sqM) Est GFR (CKD-EPI)NonAf 76 (>60 ml/min/1.73 sqM) Glucose 188 H (74-99) mg/dL Plasma Lactic Acid Nguyễn 1.6 (0.7-2.0) mmol/L Calcium 9.6 (8.4-10.2) mg/dL Total Bilirubin 1.3 (0.2-1.3) mg/dL AST 70 H (14-36) U/L ALT 94 H (4-34) U/L Alkaline Phosphatase 65 (38-126) U/L Total Protein 7.5 (6.3-8.2) g/dL Albumin 4.8 (3.5-5.0) g/dL Amylase 62 (30-110) U/L Lipase 129 (23-300) U/L Disposition Clinical Impression: Cecal volvulus Disposition: OTHER INSTITUTION NOT DEFINED Condition: Fair Is patient prescribed a controlled substance at d/c from ED?: No Referrals: Jace Chawla [Primary Care Provider] - 1-2 days - Out of Hospital Transfer - Req. Specs Out of Hospital Transfer - Requested Specifics: Other Emergency Center ([facility])
[2023-10-10 08:25] VITALS: BP 106/57; PULSE 78; TEMP 98.1
== END 2023-10-10 07:57 | disposition other institution (70) ==
LOC: EC 04:19
DX: K56.2 Volvulus (principal)
CPT/HCPCS: 96375 ×3; 96376 ×2; 96374 ×2; 99291 ×2; 36415; 80053; 82150; 83605; 83690; 85025; 74176; J2270; J2765; J2405; 99285

== ENCOUNTER → 2023-11-27 | Outpatient (CLI) | payer MEDICARE ==
--- NOTE | 2023-11-29 11:47 | MM ---
Reason for Exam: Screening (asymptomatic). Last mammogram was performed 1 year(s) and 1 month(s) ago. Patient History: Menarche at age 11. First Full-Term at age 22. Postmenopausal. Patient has history of breast feeding. Progesterone for 4 months starting at age 50. 10/28/2004, Benign Cyst Aspiration on the left side. 10/28/2004, Benign Ultrasound-Guided Core Biopsy on the left side. Risk Values: Maia 5 year model risk: 1.8%. NCI Lifetime model risk: 5.6%. Prior Study Comparison: 09/11/2021 Left Diagnostic Mammogram, [facility]. 03/11/2022 Left MG 3D diag mammo w/cad LT, [facility]. 10/13/2022 Bilateral MG 3D screening mammo w/cad, [facility]. Tissue Density: There are scattered areas of fibroglandular density. Findings: Analyzed By CAD. The pattern is symmetrical. Core marker is within the left breast. Couple of scattered benign punctate calcifications are present No suspicious groups of microcalcifications, spiculated or lobular masses, architectural distortion or other secondary signs of malignancy are mammographically apparent. Overall Assessment: Benign, BI-RAD 2 Management: Screening Mammogram of both breasts in 1 year. A negative mammogram report should not preclude additional follow up of suspicious palpable abnormalities. Patient should continue monthly self breast exam. A clinical breast exam by your physician is recommended on an annual basis and results should be correlated with mammographic findings. Note on Maia scores and lifetime risk: 1. A Maia score greater than 3% is considered moderate risk. If this is the case, consider specialist referral to assess eligibility for a risk reducing agent. 2. If overall lifetime risk for the development of breast cancer is 20% or higher, the patient may qualify for future screening with alternating mammogram and breast MRI. Electronically signed and approved by: Stephen Steiner D.O. Radiologis
== END | disposition home or self-care (01) ==
LOC: RADMAMWWP 15:04
PROVIDERS: ATTEND Family Medicine
DX: Z12.31 Encounter for screening mammogram for malignant neoplasm of breast (principal); R92.323 Mammographic fibroglandular density, bilateral breasts; Z78.0 Asymptomatic menopausal state
CPT/HCPCS: 77063; 77067

== ENCOUNTER → 2023-11-27 | Outpatient (CLI) | payer MEDICARE ==
--- NOTE | 2023-11-27 16:04 | US ---
EXAMINATION TYPE: US thyroid st tissue head/neck DATE OF EXAM: 11/27/2023 COMPARISON: 08/16/2021 CLINICAL INDICATION: Female, 68 years old with history of E04.9 NONTOXIC GOITER, UNSPECIFIED; Patient denies any signs, symptoms, or changes from prior GLAND SIZE: Right Lobe: 5.2 x 1.9 x 1.7 cm Overall Parenchyma: homogeneous Left Lobe: 5.3 x 2.1 x 1.8 cm Overall Parenchyma: homogeneous Isthmus Thickness: 0.8 cm NODULES RIGHT: # of nodules measured on right: 1 1. 1.4 X 0.8 x 0.9 cm, upper lateral, Prior size: 1.0 x 0.6 x 0.9 cm TIRADS Score: 0 TIRADS Category 1: Composition: Cystic or almost completely cystic (0 points). Recommendation: No FNA LEFT: # of nodules measured on left: 1 1. 2.3 X 1.9 x 1.4 cm, lower lateral, Prior size: 1.6 x 1.4 x 1.3 cm TIRADS Score: 4 TIRADS Category 4: Composition: Solid or almost completely solid (2 points). Echogenicity: Hypoechoic (2 points). Shape: Wider than tall (0 points). Margin: Smooth (0 points). Echogenic foci: None or large comet-tail artifacts (0 points) Recommendation: If >1.5cm: FNA; If >1cm: Follow up at 1,2, 3,5 years ISTHMUS: # of nodules measured in the isthmus: 1 1. 1.1 X 0.6 x 0.7 cm Prior size: not seen on prior TIRADS Score: 4 TIRADS Category 4: Composition: Solid or almost completely solid (2 points). Echogenicity: Hypoechoic (2 points). Shape: Wider than tall (0 points). Margin: Smooth (0 points). Echogenic foci: None or large comet-tail artifacts (0 points) Recommendation: If >1.5cm: FNA; If >1cm: Follow up at 1,2, 3,5 years Bilateral neck scanned, no evidence of lymphadenopathy. IMPRESSION: Thyroid nodules bilaterally. 1. on the right for no follow-up, 2. on the left thyroid nodule #1 needs criteria for fine-needle aspiration.
== END | disposition home or self-care (01) ==
LOC: RADUSWWP 15:08
PROVIDERS: ATTEND Internal Medicine Endocrinology, Diabetes & Metabolism
DX: E04.2 Nontoxic multinodular goiter (principal)
CPT/HCPCS: 76536

== ENCOUNTER → 2024-01-25 | Outpatient (CLI) | payer MEDICARE ==
--- NOTE | 2024-01-25 13:19 | US ---
EXAMINATION TYPE: US carotid duplex BILAT DATE OF EXAM: 01/25/2024 COMPARISON: NONE CLINICAL INDICATION: Female, 68 years old with history of I65.23 OCCLUSION AND STENOSIS OF BILATERAL CAROTID; no stroke, no symptoms TECHNIQUE: Carotid duplex ultrasound examination. Indirect Doppler criteria was utilized. FINDINGS: EXAM MEASUREMENTS: RIGHT: Peak Systolic Velocity (PSV) cm/sec ----- Right CCA: 95.5 ----- Right ICA: 107.0 ----- Right ECA: 139.0 ICA/CCA ratio: 1.1 RIGHT: End Diastole cm/sec ----- Right CCA: 19.5 ----- Right ICA: 34.4 ----- Right ECA: 10.7 LEFT: Peak Systolic Velocity (PSV) cm/sec ----- Left CCA: 89.4 ----- Left ICA: 91.5 ----- Left ECA: 107.0 ICA/CCA ratio: 1.0 LEFT: End Diastole cm/sec ----- Left CCA: 18.0 ----- Left ICA: 29.3 ----- Left ECA: 15.6 VERTEBRALS (direction of flow): Right Vertebral: Antegrade Left Vertebral: Antegrade Rhythm: Normal SCIENTIFIC AFFAIRS MANAGER NOTES: Mild homogeneous plaque with no stenosis seen. There may be some tortuosity at th e right external carotid artery which may account for the velocity. IMPRESSION: No significant flow-limiting stenosis internal carotid arteries. Criteria for Assigning % of Stenosis / Diameter reduction (Estimation based on the indirect measurements of the internal carotid artery velocities (ICA PSV). 1. Normal (no stenosis)=ICA PSV < 125 cm/s: ratio < 2.0: ICA EDV<40 cm/s. 2. Less than 50% stenosis=ICA PSV < 125 cm/s: ratio < 2.0: ICA EDV<40 cm/s. 3. 50 to 69% stenosis=ICA PSV of 125 to 230 cm/s: ration 2.0 ? 4.0: ICA EDV 40-100 cm/s. 4. Greater than 70% stenosis to near occlusion= ICA PSV > 230 cm/s: ratio > 4.0: ICA EDV > 100 cm/s. 5. Near occlusion= ICA PSV velocities may be low or undetectable: variable ratio and ICA EDV. 6. Total occlusion=unable to detect flow. [facility], , 01/25/2024 1:17 PM
== END | disposition home or self-care (01) ==
LOC: RADUSWWP 12:21
PROVIDERS: ATTEND Internal Medicine
DX: I65.23 Occlusion and stenosis of bilateral carotid arteries (principal)
CPT/HCPCS: 93880

== ENCOUNTER → 2024-07-06 | Outpatient (CLI) | payer MEDICARE ==
--- NOTE | 2024-07-06 23:48 | XR ---
EXAMINATION TYPE: XR cervical spine w flex/ext DATE OF EXAM: 07/06/2024 4:49 PM COMPARISON: None. CLINICAL INDICATION: Female, 69 years old with history of M54.2 neck pain, pain TECHNIQUE:5 view(s) obtained. FINDINGS: Prevertebral space is normal. There is loss of disc height at C5-6 C6-7. Posterior spinal lamellar li ne is intact. There is some anterior subluxation of C4 anteriorly on C5 in the flexion position. This is more normal orientation in the extension view. Endplate spurring is present C5-6 There is moderate foraminal narrowing on left and mild foraminal narrowing C5-6 C6-7 on the right. Od ontoid is nondiagnostic. Submental vertex view however is visualized appears within normal limits IMPRESSION: 1. Degenerative disc changes C5-6 C6-7. 2. Some anterolisthesis of C4 on C5 in flexion with more normal orientation in neutral and extension views. [facility], , 07/06/2024 11:46 PM
== END | disposition home or self-care (01) ==
LOC: RADXRMAIN 15:49
PROVIDERS: ATTEND Internal Medicine
DX: M47.812 Spondylosis without myelopathy or radiculopathy, cervical region (principal); M43.12 Spondylolisthesis, cervical region
CPT/HCPCS: 72052

== ENCOUNTER → 2024-07-19 | Outpatient (CLI) | payer MEDICARE ==
--- NOTE | 2024-07-20 08:31 | BD ---
EXAMINATION TYPE: Axial Bone Density DATE OF EXAM: 07/19/2024 CLINICAL HISTORY: 69 years old Female. ICD-10 CODE: M85.851 DISORDER OF BONE , Additional History: Height: 59.7 Weight: 188 FRAX RISK QUESTIONS: Secondary Osteoporosis: RISK FACTORS HISTORY OF: MEDICATIONS: EXAM MEASUREMENTS: Bone mineral densitometry was performed using the [employer] System. Bone mineral density as measured about the Lumbar spine is: ----- L1-L4(G/cm2): 1.152 T Score Values are as follows: ----- L1: -0.4 ----- L2: -0.3 ----- L3: -0.3 ----- L4: -0.1 ----- L1-L4: -0.2 Z Score Values are as follows: ----- L1: 0.6 ----- L2: 0.7 ----- L3: 0.7 ----- L4: 0.9 ----- L1-L4: 0.8 Bone mineral density has: Decreased -2.4% since study of: 09-09-21 Bone mineral density about the R hip (g/cm2): 1.016 Bone mineral density about the L hip (g/cm2): 0.964 T Score values are as follows: -----R Neck: -0.3 -----L Neck: -0.9 -----R Total: 0.1 -----L Total: -0.3 Z Score values are as follows: -----R Neck: 1.0 -----L Neck: 0.3 -----R Total: 1.1 -----L Total: 0.7 Bone mineral density has: Decreased -6.5% since study of: 09-09-21 FRAX%s: The graph provided illustrates a 7.9% chance for a major osteoporotic fx and a 0.7% chance fo r the hips probability for fx in 10 years time. IMPRESSION: Normal (Values between +1 and -1 indicate normal bone mass). Consider repeating this study in 5 year s or sooner if there is some new clinical indication. NOTE: T-SCORE=SD OF THE YOUNG ADULT MEAN. [facility], , 07/20/2024 8:29 AM
== END | disposition home or self-care (01) ==
LOC: RADBDWWP 14:36
PROVIDERS: ATTEND Internal Medicine
DX: M85.851 Other specified disorders of bone density and structure, right thigh (principal)
CPT/HCPCS: 77080

== ENCOUNTER → 2024-11-15 | Outpatient (CLI) | payer MEDICARE ==
--- NOTE | 2024-11-15 17:20 | XR ---
EXAMINATION TYPE: XR chest 2V DATE OF EXAM: 11/15/2024 5:06 PM COMPARISON: Chest radiographs from 12/25/2017, CT abdomen and pelvis 10/10/2023 TECHNIQUE: XR chest 2V Frontal and lateral views of the chest. CLINICAL INDICATION:Female, 69 years old with history of R09.89 OTH SYMPTOMS AND SIGNS INVOLVING THE CIRC A; FINDINGS: Lungs/Pleura: No pleural effusion. Chronic elevation of the left hemidiaphragm. No focal consolidatio n or pneumothorax. Pulmonary vascularity: Chronic central pulmonary vascular congestion. Heart/mediastinum: Cardiomediastinal silhouette is stable. Large hiatal hernia redemonstrated. Musculoskeletal: No acute osseous pathology. Increased thoracic kyphosis. IMPRESSION: 1. No acute cardiopulmonary disease/process. 2. Large hiatal hernia redemonstrated. [facility], , 11/15/2024 5:17 PM
== END | disposition home or self-care (01) ==
LOC: RADXRMAIN 16:54
DX: K44.9 Diaphragmatic hernia without obstruction or gangrene (principal); R09.89 Other specified symptoms and signs involving the circulatory and respiratory systems
CPT/HCPCS: 71046

== ENCOUNTER → 2024-11-28 | Outpatient (CLI) | payer MEDICARE ==
[2024-11-28 20:02] LABS: Anion Gap 15.50 mmol/L (4.00-12.00); BUN/Creat Ratio 21.62 Ratio (12.00-20.00); Blood Urea Nitrogen 17.3 mg/dL (9.0-27.0); Calcium 9.7 mg/dL (8.7-10.3); Carbon Dioxide 21.5 mmol/L (21.6-31.8); Chloride 102 mmol/L (96-109); Glucose 113 mg/dL (70-110); Potassium 4.3 mmol/L (3.5-5.5); Sodium 139 mmol/L (135-145)
[2024-11-29 02:18] LABS: Basophils # (A) 0.01 X 10*3/uL (0.00-0.10); Basophils % (A) 0.2 %; Eosinophils # (A) 0.10 X 10*3/uL (0.04-0.35); Eosinophils % (A) 1.7 %; HCT 41.9 % (37.2-46.3); HGB 13.0 g/dL (12.0-15.0); Immature Grans, Automated 0.30 %; Lymphocytes # (A) 1.96 X 10*3/uL (0.90-5.00); Lymphocytes % (A) 32.9 %; MCH 27.2 pg (27.0-32.0); MCHC 31.0 g/dL (32.0-37.0); MCV 87.7 FL (80.0-97.0); Monocytes # (A) 0.50 X 10*3/uL (0.20-1.00); Monocytes % (A) 8.4 %; NRBC Per 100 WBC 0 X 10*3/uL (0.00-0.01); Neutrophils # (A) 3.37 X 10*3/uL (1.80-7.70); Neutrophils % (A) 56.5 %; Platelet Count 231 X 10*3/uL (140-440); RBC 4.78 X 10*6/uL (4.10-5.20); RDW 16.2 % (11.5-14.5); WBC 5.96 X 10*3/uL (4.50-10.00)
== END | disposition home or self-care (01) ==
LOC: LABPAT 14:37
PROVIDERS: ATTEND Surgery
DX: Z01.812 Encounter for preprocedural laboratory examination (principal); K43.9 Ventral hernia without obstruction or gangrene; E55.9 Vitamin D deficiency, unspecified; R73.09 Other abnormal glucose; Z79.2 Long term (current) use of antibiotics
CPT/HCPCS: 80048; 80323; 82306; 83036; 84146; 85025; 87070